=== PATIENT | female | born 1940 | race Caucasian/White ===

== ENCOUNTER 2016-06-22 19:01 | Emergency (ER) | payer OTHER ==
[~2016-06-22] VITALS: Ht 160 cm; Wt 64.0 kg
[~2016-06-22 19:01] MED LIST: ATV/1 PO; OMEP20CA9 PO; [UNRECOGNIZED DRUG - OTHER] OPL
[2016-06-22 19:04] VITALS: TEMP 36.5; Ht 160 cm; Wt 64.0 kg
[2016-06-22] MEDS ORDERED: SODIUM CHLORIDE 0.9% 1000ML 1,000 ML IV STA (20:10)
--- NOTE | 2016-06-22 20:30 | DIAGNOSTIC IMAGING REPORT ---
CHEST ONE VIEW PORTABLE CLINICAL HISTORY: Weakness COMPARISON STUDY: 03/27/2013 FINDINGS: The cardiac and mediastinal contours are normal. There is no evidence of focal pulmonary consolidation. There is no evidence of failure. No pleural effusions are visualized.[ There is minor right basilar atelectasis/scarring. IMPRESSION: No active disease in the chest. Electronically signed by: Donaldo Davis M.D. 06/22/2016 8:29 PM Dictated Date/Time: 06/22/2016 8:28 PM
[2016-06-22 20:36] VITALS: O2SAT 98
[2016-06-22 20:49] LABS: BASO % 0.3 %; BASO ABS # 0.02 K/uL (0-0.2); COMPLETE YES; EOS % 0.7 %; HEMATOCRIT 40.3 % (37-47); IG% 0.3 %; LYMPH % 34.8 %; LYMPH ABS # 2.62 K/uL (1.2-3.4); MEAN CELL VOLUME 89.4 fL (80-100); MEAN CORPUSCULAR HEMOGLOBIN 30.2 pg (25-34); MEAN CORPUSCULAR HGB CONC 33.7 g/dl (32-36); MEAN PLATELET VOLUME 9.9 fL (7.4-10.4); MONO % 9.2 %; NEUT % 54.7 %; PLATELET COUNT 256 K/uL (130-400); RED BLOOD COUNT 4.51 M/uL (4.2-5.4); WHITE BLOOD COUNT 7.53 K/uL (4.8-10.8)
[2016-06-22 21:00] LABS: PARTIAL THROMBOPLASTIN RATIO 0.9
[2016-06-22 21:12] LABS: ALT/SGPT 24 U/L (12-78); BLOOD UREA NITROGEN 16 mg/dl (7-18); BUN/CREATININE RATIO 19.9 (10-20); CALCIUM 9.7 mg/dl (8.5-10.1); CARBON DIOXIDE 31 mmol/L (21-32); CHLORIDE 100 mmol/L (98-107); CREATININE 0.79 mg/dl (0.60-1.20); GLUCOSE 96 mg/dl (70-99); MAGNESIUM 1.9 mg/dl (1.8-2.4); POTASSIUM 3.3 mmol/L (3.5-5.1); SODIUM 140 mmol/L (136-145)
[2016-06-22 21:23] LABS: ALKALINE PHOSPHATASE 66 U/L (45-117); AST/SGOT 19 U/L (15-37); CKMB/CK RATIO 2.2 (0-3.0); THYROID STIMULATING HORMONE 0.205 uIu/ml (0.300-4.500)
[2016-06-22] MEDS ORDERED: CARB1SOL OPB (21:38)
[2016-06-22] MEDS ORDERED: VALA1TAB2 PO (21:38)
[2016-06-22] MEDS ORDERED: POTASSIUM CHLORIDE 10 MEQ TABCR PO STA (22:35)
[2016-06-22 22:45] LABS: URINE APPEARANCE CLEAR (CLEAR); URINE BILIRUBIN NEG (NEG); URINE COLOR YELLOW; URINE EPITHELIAL CELL AUTO 0-5 /lpf (0-5); URINE NITRITE NEG (NEG); UROBILINOGEN NEG (NEG)
[2016-06-22 22:46] LABS: MANUAL MICROSCOPIC REQUIRED? NO; REVIEW REQ? NO
[2016-06-22] MEDS ORDERED: LSN/2025 PO (22:52)
[2016-06-22] MEDS ORDERED: CALC-452 PO (23:01)
[2016-06-22] MEDS ORDERED: MULT-190 PO (23:01)
[2016-06-22] MEDS ORDERED: HYDR2.5C37 TOP (23:08)
[2016-06-23 00:11] VITALS: BP 160/75; PULSE 71; O2SAT 100
--- NOTE | 2016-06-23 02:53 | EMERGENCY ROOM VISIT NOTE ---
History Report prepared by Angi: Bria Royal Under the Supervision of: Dr. Be Joshi M.D. First contact with patient: 20:10 Chief Complaint: CARDIAC ASSESSMENT Stated Complaint: HEART PALPS Nursing Triage Summary: "my heart has been flipping and like shutting off. Sometimes I feel short of breath when it's doing that". Seen at PCP 3 weeks ago for same issue, now worsening. Fluttering History of Present Illness The patient is a 76 year old female who presents to the Emergency Room with complaints of intermittent heart flipping beginning 4 hours ago. The patient states that the heart flipping stopped right before she got her EKG. She notes that she was seen here before for heart palpitations and racing in 2010 and was told it was anxiety but today she feels different. She reports that she sometimes gets heart flipping and the feeling of it "stopping for a second" but never for this long. The patient notes that she has been feeling this off and on for about 1 week. She complains of chest tightness like she needs to burp over the last week. Pt denies LOC, headache, fevers, chills, diaphoresis, visual changes, neck pain, chest pain, breathing difficulties, nausea, vomiting , abdominal pain, back pain, melena, hematochezia, urinary symptoms, numbness, weakness, lymphadenopathy, rash, change in appetite, or other complaints. Source of History: patient Onset: 4 hours ago Position: other (heart) Quality: other (flipping) Timing: intermittent Review of Systems See HPI for pertinent positives and negatives. A total of ten systems were reviewed and were otherwise negative. Past Medical & Surgical Medical Problems: (1) Benign hypertension (2) Bronchitis (3) Gastroesophageal reflux disease (4) Hysterectomy (5) Palpitations (6) Vertigo Family History Patient reports no known family medical history. Social History Smoking Status: Never Smoker Marital Status: Housing Status: lives with family Occupation Status: retired Current/Historical Medications Scheduled Calcium Carbonate-Cholecalcife (Calcium 600 + D 600-200 mg-Unit), 1 TAB PO BID Carboxymethylcellulose Sodium (Refresh), 1 DROP OPB PRN Hctz/Lisinopril (Lisinopril/Hctz 20/25 Mg), 1 TAB PO DAILY Hydrocortisone 2.5% (Rectal) (Anusol-Hc 2.5%), 1 APPLN TOP BID Ocuvite Preservision (Ocuvite Preservision), 1 TAB PO DAILY Valacyclovir Hcl (Valtrex), 1,000 MG PO UD Scheduled PRN Lorazepam (Ativan), 1 MG PO HS PRN for Sleep Allergies Coded Allergies: Camphor (Verified Allergy, Unknown, ., 04/22/15) Carboxymethylcellulose (Verified Allergy, Unknown, ., 04/22/15) Menthol (Verified Allergy, Unknown, ., 04/22/15) Methyl Salicylate (Verified Allergy, Unknown, ., 04/22/15) Physical Exam Vital Signs Date Time Temp Pulse Resp B/P Pulse Ox O2 Delivery O2 Flow Rate FiO2 06/23/16 00:11 71 16 160/75 100 06/22/16 22:23 71 16 160/75 100 Room Air 06/22/16 21:11 75 16 164/71 99 Room Air 06/22/16 20:37 70 16 160/73 99 Room Air 06/22/16 20:36 98 Room Air 06/22/16 20:36 Room Air 06/22/16 20:35 74 06/22/16 19:11 99 Room Air 06/22/16 19:04 36.5 83 18 178/84 99 Room Air Physical Exam GENERAL: Awake, alert, well-appearing, in no distress HENT: Normocephalic, atraumatic. Oropharynx unremarkable. EYES: Normal conjunctiva. Sclera non-icteric. NECK: Supple. No nuchal rigidity. FROM. No JVD. RESPIRATORY: Clear to auscultation. CARDIAC: Regular rate, normal rhythm. Extremities warm and well perfused. Pulses equal. ABDOMEN: Soft, non-distended. No tenderness to palpation. No rebound or guarding. No masses. RECTAL: Deferred. MUSCULOSKELETAL: Chest examination reveals no tenderness. The back is symmetrical on inspection without obvious abnormality. There is no CVA tenderness to palpation. No joint edema. LOWER EXTREMITIES: Calves are equal size bilaterally and non-tender. No edema. No discoloration. NEURO: Normal sensorium. No sensory or motor deficits noted. SKIN: No rash or jaundice noted. Medical Decision & Procedures ER Provider Diagnostic Interpretation: X ray results as stated below per my interpretation and radiologist interpretation. CHEST ONE VIEW PORTABLE FINDINGS: The cardiac and mediastinal contours are normal. There is no evidence of focal pulmonary consolidation. There is no evidence of failure. No pleural effusions are visualized.[ There is minor right basilar atelectasis/scarring. IMPRESSION: No active disease in the chest. Electronically signed by: Donaldo Davis M.D. 06/22/2016 8:29 PM Dictated Date/Time: 06/22/2016 8:28 PM Laboratory Results 06/22/16 20:39 Red Blood Count 4.51, Mean Corpuscular Volume 89.4, Mean Corpuscular Hemoglobin 30.2, Mean Corpuscular Hemoglobin Concent 33.7, Mean Platelet Volume 9.9, Neutrophils (%) (Auto) 54.7, Lymphocytes (%) (Auto) 34.8, Monocytes (%) (Auto) 9.2, Eosinophils (%) (Auto) 0.7, Basophils (%) (Auto) 0.3, Neutrophils # (Auto) 4.13, Lymphocytes # (Auto) 2.62, Monocytes # (Auto) 0.69, Eosinophils # (Auto) 0.05, Basophils # (Auto) 0.02 06/22/16 20:39 Test 06/22/16 20:35 06/22/16 20:39 06/22/16 22:30 Free Triiodothyronine 2.90 pg/ml (2.30-4.20) White Blood Count 7.53 K/uL (4.8-10.8) Red Blood Count 4.51 M/uL (4.2-5.4) Hemoglobin 13.6 g/dL (12.0-16.0) Hematocrit 40.3 % (37-47) Mean Corpuscular Volume 89.4 fL (80-100) Mean Corpuscular Hemoglobin 30.2 pg (25-34) Mean Corpuscular Hemoglobin Concent 33.7 g/dl (32-36) Platelet Count 256 K/uL (130-400) Mean Platelet Volume 9.9 fL (7.4-10.4) Neutrophils (%) (Auto) 54.7 % Lymphocytes (%) (Auto) 34.8 % Monocytes (%) (Auto) 9.2 % Eosinophils (%) (Auto) 0.7 % Basophils (%) (Auto) 0.3 % Neutrophils # (Auto) 4.13 K/uL (1.4-6.5) Lymphocytes # (Auto) 2.62 K/uL (1.2-3.4) Monocytes # (Auto) 0.69 K/uL (0.11-0.59) Eosinophils # (Auto) 0.05 K/uL (0-0.5) Basophils # (Auto) 0.02 K/uL (0-0.2) RDW Standard Deviation 41.8 fL (36.4-46.3) RDW Coefficient of Variation 13.0 % (11.5-14.5) Immature Granulocyte % (Auto) 0.3 % Immature Granulocyte # (Auto) 0.02 K/uL (0.00-0.02) Prothrombin Time 11.0 SECONDS (9.0-12.0) Prothromb Time International Ratio 1.0 (0.9-1.1) Activated Partial Thromboplast Time 24.0 SECONDS (21.0-31.0) Partial Thromboplastin Ratio 0.9 Anion Gap 9.0 mmol/L (3-11) Est Creatinine Clear Calc Drug Dose 52.8 ml/min Estimated GFR () 83.1 Estimated GFR (Non- 71.7 BUN/Creatinine Ratio 19.9 (10-20) Calcium Level 9.7 mg/dl (8.5-10.1) Magnesium Level 1.9 mg/dl (1.8-2.4) Total Bilirubin 0.4 mg/dl (0.2-1) Direct Bilirubin < 0.1 mg/dl (0-0.2) Aspartate Amino Transf (AST/SGOT) 19 U/L (15-37) Alanine Aminotransferase (ALT/SGPT) 24 U/L (12-78) Alkaline Phosphatase 66 U/L (45-117) Total Creatine Kinase 131 U/L (26-192) Creatine Kinase MB 2.9 ng/ml (0.5-3.6) Creatine Kinase MB Ratio 2.2 (0-3.0) Troponin I < 0.015 ng/ml (0-0.045) Total Protein 7.3 gm/dl (6.4-8.2) Albumin 4.0 gm/dl (3.4-5.0) Thyroid Stimulating Hormone (TSH) 0.205 uIu/ml (0.300-4.500) Free Thyroxine 1.31 ng/dl (0.80-1.60) Urine Color YELLOW Urine Appearance CLEAR (CLEAR) Urine pH 7.0 (4.5-7.5) Urine Specific [place] 1.000 (1.000-1.030) Urine Protein NEG (NEG) Urine Glucose (UA) NEG (NEG) Urine Ketones NEG (NEG) Urine Occult Blood TRACE (NEG) Urine Nitrite NEG (NEG) Urine Bilirubin NEG (NEG) Urine Urobilinogen NEG (NEG) Urine Leukocyte Esterase NEG (NEG) Urine WBC (Auto) 1-5 /hpf (0-5) Urine RBC (Auto) 0-4 /hpf (0-4) Urine Hyaline Casts (Auto) 0 /lpf (0-5) Urine Epithelial Cells (Auto) 0-5 /lpf (0-5) Urine Bacteria (Auto) NEG (NEG) Laboratory results reviewed by me Medications Administered Medications (Trade) Dose Ordered Sig/Tee Route Start Time Stop Time Status Last Admin Dose Admin Sodium Chloride (Nss 1000ml) 1,000 ml @ 125 mls/hr Q8H STAT IV 06/22/16 20:10 06/23/16 04:09 06/22/16 21:11 125 MLS/HR Potassium Chloride (Klor-Con M10) 20 meq NOW STAT PO 06/22/16 22:35 06/22/16 22:36 DC 06/22/16 23:06 20 MEQ ECG Indication: palpitations Rate (beats per minute): 80 Rhythm: normal sinus Findings: no acute ischemic change, no ectopy ED Course 2009: Sodium Chloride 1000 ml @ 125 mls/hr IV. 2021: The patient was evaluated in room C9. A complete history and physical exam was performed. 5: Klor-Con M10 20meq PO. 2259: I reevaluated the patient. She is feeling better and going to CT. 2249: I reevaluated the patient. She feels well. I updated her and we are waiting on her labs. 2307: PACs noted on monitor. 0004: Case management is going to call the patient's PCP office to get outpatient cardiac monitoring set up. 0012: I reevaluated the patient. Discussed results and discharge instructions: She verbalized understanding and agreement. The patient is ready for discharge. Medical Decision Prior records/ancillary studies reviewed. Triage Nursing notes reviewed and agree them. Additional history obtained from the family. The patient's history was concerning for palpitations. Differential diagnosis: Etiologies such as PVCs, PACs, electrolyte abnormality, cardiac dysrhythmia, thyroid dysfunction, pulmonary embolism, infection, gastrointestinal, as well as others were entertained. Physical examination: Benign as above. ER treatment provided: Cardiac monitoring. Normal saline hydration On reassessment the patient felt better. ORAL potassium Diagnostic interpretation by me: The electrocardiogram was negative for pathologic change. The labs revealed an unremarkable CBC, chemistry panel, and magnesium. Potassium was slightly low at 3.3. TSH was mildly low but T3 and T4 were normal. Cardiac markers were negative. Imaging studies: Chest x-ray as above. The patient was noted on recent to have a few premature beats. She may be having ectopy or even a possible short-lived dysrhythmia. She will need to have outpatient follow-up including a outpatient clinical research monitor. I discussed this with the patient. She and her were in agreement. She will contact her primary office tomorrow. I did have case management notified so that they can pass information on to the morning case consultant who can contact the office to assist the patient with this. If she worsens in any way she will be back for reevaluation. By the evaluation outlined above emergent etiologies such as electrolyte abnormality, cardiac dysrhythmia, thyroid dysfunction, pulmonary embolism, infection, as well as others were deemed relatively unlikely. The patient and were informed about the findings as listed above. All questions were answered and they were pleased with the treatment. Return instructions were outlined and the patient was discharged in stable condition. Outpatient prescription management: No change Referral: The patient was referred back to her primary care physician for follow-up in 2 to 3 days for a recheck of the current condition. The chart was completed utilizing [employer] Speech voice recognition software. Grammatical errors, random word insertions, pronoun errors, and incomplete sentences are an occasional consequence of this system due to software limitations, ambient noise, and hardware issues. Any formal questions or concerns about the content, text, or information contained within the body of this dictation should be directly addressed to the physician for clarification. Impression Primary Impression: Palpitations Additional Impression: Hypokalemia Scribe Attestation The scribe's documentation has been prepared under my direction and personally reviewed by me in its entirety. I confirm that the note above accurately reflects all work, treatment, procedures, and medical decision making performed by me. Departure Information Dispostion Home / Self-Care Referrals Elmer Palacio M.D. (PCP) Forms IMPORTANT VISIT INFORMATION Patient Instructions My [facility] Additional Instructions PALPITATIONS(RAPID OR SKIPPING HEARTBEAT) INSTRUCTIONS: Rest and drink plenty of fluids as tolerated. Continue current medications. Resume normal activities once your symptoms resolve. Eat a heart healthy, low fat, low cholesterol diet. Return to the ER immediately for passing out, chest pain, abdominal pain, vomiting, fevers, difficulty breathing, worsening of your condition, or as needed. Follow up with your primary physician tomorrow for a recheck of your current condition. Case management is going to call the office to notify them to help you with the appointment. An outpatient clinical research monitor is recommended. Problem Qualifiers
== END 2016-06-23 00:11 | disposition home or self-care (01) ==
LOC: C.EDB 19:02 → C.EDC 06-23 00:11
DX: R00.2 Palpitations (principal); E87.6 Hypokalemia; I10 Essential (primary) hypertension; Z90.710 Acquired absence of both cervix and uterus; Z79.899 Other long term (current) drug therapy

== ENCOUNTER 2016-10-17 12:15 | Emergency (ER) | payer OTHER ==
[~2016-10-17] VITALS: Ht 157.5 cm; Wt 63.0 kg
[~2016-10-17 12:15] MED LIST changes: +CALC-452 PO; +CARB1SOL OPB; +HYDR2.5C37 TOP; +LSN/2025 PO; +MULT-190 PO; -OMEP20CA9 PO; +VALA1TAB2 PO; -[UNRECOGNIZED DRUG - OTHER] OPL
[2016-10-17 12:25] VITALS: TEMP 36.3; Ht 157.5 cm; Wt 63.0 kg
[2016-10-17 13:30] VITALS: O2SAT 97
[2016-10-17 13:42] LABS: BASO % 0.5 %; BASO ABS # 0.05 K/uL (0-0.2); COMPLETE YES; EOS % 0.4 %; HEMATOCRIT 47.4 % (37-47); IG% 0.2 %; LYMPH % 20.8 %; LYMPH ABS # 2.09 K/uL (1.2-3.4); MEAN CORPUSCULAR HEMOGLOBIN 31.2 pg (25-34); MEAN CORPUSCULAR HGB CONC 33.1 g/dl (32-36); MEAN PLATELET VOLUME 9.9 fL (7.4-10.4); MONO % 5.2 %; NEUT % 72.9 %; PLATELET COUNT 273 K/uL (130-400); RED BLOOD COUNT 5.04 M/uL (4.2-5.4); WHITE BLOOD COUNT 10.04 K/uL (4.8-10.8)
[2016-10-17 13:53] LABS: PROTHROMBIN TIME (PATIENT) 10.7 SECONDS (9.0-12.0)
[2016-10-17 13:58] LABS: BUN/CREATININE RATIO 27.4 (10-20); CALCIUM 9.4 mg/dl (8.5-10.1); CREATININE 0.75 mg/dl (0.60-1.20); POTASSIUM 3.3 mmol/L (3.5-5.1)
[2016-10-17] MEDS ORDERED: METO25TA3 PO (14:02)
[2016-10-17] MEDS ORDERED: PRED1SUS17 OPL (14:06)
[2016-10-17] MEDS ORDERED: BRIN3SUS OPL (14:06)
[2016-10-17] MEDS ORDERED: BRIM0.2S OPL (14:06)
[2016-10-17 14:09] LABS: THYROID STIMULATING HORMONE 0.587 uIu/ml (0.300-4.500)
--- NOTE | 2016-10-17 14:47 | EMERGENCY ROOM VISIT NOTE ---
History First contact with patient: 13:08 Chief Complaint: HYPERTENSION Stated Complaint: VERY HIGH BLOOD PRESSURE History of Present Illness The patient is a 76 year old female who presents to the Emergency Room with complaints of hypertension. Patient states she was feeling anxious this morning and took her blood pressure, noting the top number to be 239, which she states is very high for her. She has long-standing history of hypertension and is on medication to treat this. She also has a history of anxiety and takes Ativan as needed for this. She did take her blood pressure medication this morning, and she states she took an 1 mg Ativan one hour prior to arrival. She currently has no complaints and states her anxiety seems to have resolved. She denies any chest pain, shortness of breath, palpitations, leg pain or swelling, headache, blurry or double vision, nausea/vomiting. Review of Systems GENERAL: Denies fevers, chills, malaise, fatigue, unintentional weight changes. HEENT: Denies dizziness, visual problems, hearing loss, tinnitus. Denies difficulty swallowing or oral lesions. PULMONARY: Denies cough, shortness of breath, sputum production or hemoptysis. CARDIOVASCULAR: Denies chest pain, palpitations, dyspnea on exertion, orthopnea or peripheral edema. GASTROINTESTINAL: Denies diarrhea, constipation, nausea, vomiting, or abdominal pain. GENITOURINARY: Denies dysuria, frequency, urgency or nocturia. NEUROLOGIC: Denies history of epilepsy, CVA, TIA or chronic headaches. MUSCULOSKELETAL: Denies history of joint tenderness/swelling. SKIN: Denies rashes or lesions. PSYCHIATRIC: Denies history of depression or mental illness. + Anxiety. ENDOCRINE: Denies history of diabetes, thyroid disorders, abnormal hair growth or sexual dysfunction. Past Medical/Surgical History Medical Problems: (1) Benign hypertension (2) Bronchitis (3) Gastroesophageal reflux disease (4) Hysterectomy (5) Palpitations (6) Vertigo Family History Patient reports no known family medical history. Social History Smoking Status: Never Smoker Marital Status: Housing Status: lives with family Occupation Status: retired Current/Historical Medications Scheduled Brimonidine Tartrate-Timolol M (Combigan), 1 DROP OPL BID Brinzolamide-Brimonidine Tartr (Simbrinza), 1 DROP OPL TID Calcium Carbonate-Cholecalcife (Calcium 600 + D 600-200 mg-Unit), 1 TAB PO BID Carboxymethylcellulose Sodium (Refresh), 1 DROP OPB PRN Hydrocortisone 2.5% (Rectal) (Anusol-Hc 2.5%), 1 APPLN TOP BID Metoprolol Succ (Toprol Xl) (Toprol-Xl), 25 MG PO DAILY Ocuvite Preservision (Ocuvite Preservision), 1 TAB PO DAILY Prednisolone Acetate (Ophth) (Prednisolone Acetate), 1 DROP OPL QID Valacyclovir Hcl (Valtrex), 1,000 MG PO TID Scheduled PRN Lorazepam (Ativan), 1 MG PO HS PRN for Sleep Allergies Coded Allergies: Camphor (Verified Allergy, Unknown, ., 10/17/16) Carboxymethylcellulose (Verified Allergy, Unknown, ., 10/17/16) Menthol (Verified Allergy, Unknown, ., 10/17/16) Methyl Salicylate (Verified Allergy, Unknown, ., 10/17/16) Physical Exam Vital Signs Date Time Temp Pulse Resp B/P (MAP) Pulse Ox O2 Delivery O2 Flow Rate FiO2 10/17/16 15:27 50 20 172/77 98 Room Air 10/17/16 14:57 53 18 189/86 99 Room Air 10/17/16 14:04 55 18 185/83 95 Room Air 10/17/16 13:32 63 10/17/16 13:30 97 Room Air 10/17/16 13:30 97 Room Air 10/17/16 12:25 36.3 57 16 208/87 99 Room Air Physical Exam CONSTITUTIONAL: No acute distress. Well appearing and well nourished. Well hydrated. Alert and oriented X 4 with normal affect. HEENT: Normocephalic, atraumatic. Pupils equal, round and reactive to light, EOMI. TMs normal. Pharynx normal. Moist mucous membranes. NECK: Supple, full active range of motion without discomfort. RESPIRATORY: Clear to auscultation bilaterally with no wheezing, crackles, rhonchi or stridor. Equal expansion bilaterally. CARDIOVASCULAR: Regular rate and rhythm with no murmurs, rubs or gallops. Normal peripheral perfusion. No edema. GASTROINTESTINAL: Soft, nontender, nondistended. Bowel sounds present in all quadrants. MUSCULOSKELETAL: Full range of motion of all joints without discomfort. INTEGUMENTARY: No rash or other significant dermatologic conditions noted. NEUROLOGIC: Cranial nerves II-XII grossly intact. No focal neurologic deficits noted. Motor intact, sensory intact, normal coordination, normal gait. Medical Decision & Procedures Laboratory Results 10/17/16 13:15 Red Blood Count 5.04, Mean Corpuscular Volume 94.0, Mean Corpuscular Hemoglobin 31.2, Mean Corpuscular Hemoglobin Concent 33.1, Mean Platelet Volume 9.9, Neutrophils (%) (Auto) 72.9, Lymphocytes (%) (Auto) 20.8, Monocytes (%) (Auto) 5.2, Eosinophils (%) (Auto) 0.4, Basophils (%) (Auto) 0.5, Neutrophils # (Auto) 7.32, Lymphocytes # (Auto) 2.09, Monocytes # (Auto) 0.52, Eosinophils # (Auto) 0.04, Basophils # (Auto) 0.05 10/17/16 13:15 Test 10/17/16 13:15 10/17/16 13:23 10/17/16 15:45 White Blood Count 10.04 K/uL (4.8-10.8) Red Blood Count 5.04 M/uL (4.2-5.4) Hemoglobin 15.7 g/dL (12.0-16.0) Hematocrit 47.4 % (37-47) Mean Corpuscular Volume 94.0 fL (80-100) Mean Corpuscular Hemoglobin 31.2 pg (25-34) Mean Corpuscular Hemoglobin Concent 33.1 g/dl (32-36) Platelet Count 273 K/uL (130-400) Mean Platelet Volume 9.9 fL (7.4-10.4) Neutrophils (%) (Auto) 72.9 % Lymphocytes (%) (Auto) 20.8 % Monocytes (%) (Auto) 5.2 % Eosinophils (%) (Auto) 0.4 % Basophils (%) (Auto) 0.5 % Neutrophils # (Auto) 7.32 K/uL (1.4-6.5) Lymphocytes # (Auto) 2.09 K/uL (1.2-3.4) Monocytes # (Auto) 0.52 K/uL (0.11-0.59) Eosinophils # (Auto) 0.04 K/uL (0-0.5) Basophils # (Auto) 0.05 K/uL (0-0.2) RDW Standard Deviation 44.5 fL (36.4-46.3) RDW Coefficient of Variation 13.0 % (11.5-14.5) Immature Granulocyte % (Auto) 0.2 % Immature Granulocyte # (Auto) 0.02 K/uL (0.00-0.02) Prothrombin Time 10.7 SECONDS (9.0-12.0) Prothromb Time International Ratio 1.0 (0.9-1.1) Activated Partial Thromboplast Time 25.4 SECONDS (21.0-31.0) Partial Thromboplastin Ratio 1.0 Anion Gap 5.0 mmol/L (3-11) Est Creatinine Clear Calc Drug Dose 53.9 ml/min Estimated GFR () 88.5 Estimated GFR (Non- 76.3 BUN/Creatinine Ratio 27.4 (10-20) Calcium Level 9.4 mg/dl (8.5-10.1) Total Bilirubin 0.6 mg/dl (0.2-1) Direct Bilirubin 0.1 mg/dl (0-0.2) Aspartate Amino Transf (AST/SGOT) 24 U/L (15-37) Alanine Aminotransferase (ALT/SGPT) 36 U/L (12-78) Alkaline Phosphatase 83 U/L (45-117) Total Protein 7.8 gm/dl (6.4-8.2) Albumin 4.3 gm/dl (3.4-5.0) Lipase 224 U/L (73-393) Thyroid Stimulating Hormone (TSH) 0.587 uIu/ml (0.300-4.500) Bedside Troponin I 0.000 ng/ml (0-0.045) Urine Color YELLOW Urine Appearance CLEAR (CLEAR) Urine pH 6.5 (4.5-7.5) Urine Specific [place] 1.012 (1.000-1.030) Urine Protein NEG (NEG) Urine Glucose (UA) NEG (NEG) Urine Ketones NEG (NEG) Urine Occult Blood 1+ (NEG) Urine Nitrite NEG (NEG) Urine Bilirubin NEG (NEG) Urine Urobilinogen NEG (NEG) Urine Leukocyte Esterase NEG (NEG) Urine WBC (Auto) 1-5 /hpf (0-5) Urine RBC (Auto) 5-10 /hpf (0-4) Urine Hyaline Casts (Auto) 0 /lpf (0-5) Urine Epithelial Cells (Auto) 0-5 /lpf (0-5) Urine Bacteria (Auto) NEG (NEG) No proteinuria Medications Administered Medications (Trade) Dose Ordered Sig/Tee Route Start Time Stop Time Status Last Admin Dose Admin Potassium Chloride (Klor-Con M10) 40 meq NOW STAT PO 10/17/16 15:07 10/17/16 15:09 DC 10/17/16 15:29 40 MEQ ECG Indication: bradycardia, other (hypertension) Findings: 1st degree AV block, left axis deviation Change: 1st degree AV block is new compared to previous EKG on 06/22/2016. Medical Decision CC: Patient presenting with complaint of hypertension. Interpretation of Labs: No leukocytosis, no anemia, mild hypokalemia, no other significant electrolyte abnormalities, normal renal function, normal liver function, no UTI, no proteinuria Differential Diagnosis: Includes, but not limited to poorly controlled hypertension, anxiety, electrolyte abnormality, PA, renal failure Medication Reconciliation: I attest that I have personally reviewed the patient' s current medication list. Vital signs review: I reviewed the patient's vital signs and interpret them as follows: T: Afebrile; BP: Hypertensive; HR: bradycardic; RR: WNL; Pulse Ox: WNL. Blood pressure screening: The patient was found to have an elevated blood pressure and was referred to their primary doctor for recheck and further treatment. Summary: Patient was evaluated at bedside, history of physical exam performed. Patient is alert and oriented, in no acute distress. She denies any complaints at this time. She is initially noted to be hypertensive with blood pressure 208/85. Orders were placed at bedside for labs, UA, EKG to evaluate for sequela of hypertension. Patient discussed with Dr. Bill, who agrees with my assessment and plan. Labs reviewed, no significant abnormalities. Mild hypokalemia noted, most likely secondary to hydrochlorothiazide. Oral replacement given today. EKG noting a new first-degree AV block, otherwise appears unchanged from previous. Patient monitored for an extended period of time. Her blood pressure is down trending and she remains without concerning symptoms. Patient reassessed multiple times throughout ED stay, she remains well- appearing with improvement in blood pressure. Patient was strongly encouraged to follow closely with her PCP regarding her blood pressure, as well as getting her potassium level rechecked. Patient was comfortable plan for discharge and follow-up, as well as return precautions, she verbalized understanding. Patient discharged home in good condition and ambulatory. Impression Primary Impression: Hypertension Additional Impression: Hypokalemia Departure Information Dispostion Home / Self-Care Condition GOOD Referrals Elmer Palacio M.D. (PCP) Patient Instructions ED HTN Established, ED Panic Attack, My [facility] Additional Instructions Follow-up with your PCP within the next week to have your blood pressure rechecked. Should also discuss having her potassium level rechecked, since this was slightly low today. Continue to take your blood pressure medication as prescribed. Please return to the ER for any worsening symptoms, including chest pain, shortness of breath, palpitations, severe dizziness or passing out, severe headache, vision changes, persistent vomiting, or any other concerns. Problem Qualifiers Primary Impression: Hypertension Hypertension type: essential hypertension Qualified Codes: I10 - Essential ( primary) hypertension
[2016-10-17] MEDS ORDERED: POTASSIUM CHLORIDE 10 MEQ TABCR PO STA (15:07)
--- NOTE | 2016-10-17 15:12 | EMERGENCY ROOM VISIT NOTE ---
ED Visit Note First contact with patient: 13:08 76 year old female with hypertension was fully evaluated by Geri Lauren NP. I also independently evaluated the patient. Blood pressure came down with new medications. I believe there is some component of anxiety causing her blood pressure to rise.
[2016-10-17 15:27] VITALS: BP 172/77; PULSE 50; O2SAT 98
[2016-10-17 16:14] LABS: URINE APPEARANCE CLEAR (CLEAR); URINE BILIRUBIN NEG (NEG); URINE COLOR YELLOW; URINE EPITHELIAL CELL AUTO 0-5 /lpf (0-5); URINE NITRITE NEG (NEG); URINE PH 6.5 (4.5-7.5); URINE SPECIFIC GRAVITY 1.012 (1.000-1.030); UROBILINOGEN NEG (NEG)
[2016-10-17 16:16] LABS: MANUAL MICROSCOPIC REQUIRED? NO; REVIEW REQ? NO
== END 2016-10-17 15:50 | disposition home or self-care (01) ==
LOC: C.EDB 12:17 → C.EDC 15:50
DX: I10 Essential (primary) hypertension (principal); I44.0 Atrioventricular block, first degree; E87.5 Hyperkalemia; Z79.899 Other long term (current) drug therapy; F41.9 Anxiety disorder, unspecified

== ENCOUNTER → 2017-04-22 | Outpatient (CLI) | payer OTHER ==
[~2017-04-22] MED LIST changes: +BRIM0.2S OPL; +BRIN3SUS OPL; -LSN/2025 PO; +METO25TA3 PO; +PRED1SUS17 OPL
--- NOTE | 2017-04-22 14:36 | MAMMOGRAPHY REPORT ---
BILATERAL DIGITAL SCREENING MAMMOGRAM WITH CAD: 04/22/2017 CLINICAL HISTORY: Routine screening. Patient has no complaints. TECHNIQUE: Current study was also evaluated with a Computer Aided Detection (CAD) system. Bilateral CC and MLO views were obtained. COMPARISON: Comparison is made to exams dated: 04/21/2016 mammogram, 04/15/2015 mammogram, 03/27/2014 mammogram, 03/23/2013 mammogram, 09/21/2012 mammogram - [facility], and 03/13/2008. BREAST COMPOSITION: There are scattered areas of fibroglandular density in both breasts. FINDINGS: No suspicious masses, calcifications, or areas of architectural distortion are noted in ei ther breast. There has been no significant interval change compared to prior exams. Scattered bilater al benign-appearing calcifications are not significantly changed. IMPRESSION: ACR BI-RADS CATEGORY 2: BENIGN There is no mammographic evidence of malignancy. A 1 year screening mammogram is recommended. The pa tient will receive written notification of the results. Approximately 10% of breast cancers are not detected with mammography. A negative mammographic report should not delay biopsy if a clinically suggestive mass is present. Bambi Schultz M.D. ah/:04/22/2017 10:09:03 Non Linear Editor: Sharonda DIAMOND(Santos)(Chary), [facility] letter sent: Normal 1/2 BI-RADS Code: ACR BI-RADS Category 2: Benign
== END | disposition home or self-care (01) ==
LOC: C.MAMM 08:55
PROVIDERS: ATTEND Family Medicine
DX: Z12.31 Encounter for screening mammogram for malignant neoplasm of breast (principal)

== ENCOUNTER → 2018-01-03 | Day surgery (SDC) | payer OTHER ==
[2017-12-28 16:39] VITALS: Ht 160 cm; Wt 71.4 kg
[~2018-01-03] VITALS: Ht 160 cm; Wt 71.4 kg
[~2018-01-03] MED LIST changes: +ACETAMINOPHEN 325 MG TAB PO PRN; +AMLO5TAB3 PO; +ATROPINE SULFATE 0.1 MG/ML 5ML SYR IV PRN; +ATROPINE SULFATE 1% OP SOLN 2 ML BTL ONE; +AcetylCHOLine CHL OP SOL 1:100 2 ML BTL ONE; +CIPR1SUS5 OPL; +EpHEDrine SULFATE INJ 50 MG/ML AMP IV PRN; +EpINEphrine INJ 1MG/ML AMP 1 MG/ML AMP ONE; +GANC0.15 OPL; -HYDR2.5C37 TOP; +LACTATED RINGER'S 1000ML 1,000 ML IV SCH; +LIDOCAINE 3.5% OPH GEL PER APPLICATION CHARGE ONE; +LIDOCAINE 3.5% OPH GEL PER APPLICATION CHARGE OPL SCH; +LIDOCAINE 4% OP SOLN DROP CHARGE ONE; +LIDOCAINE 4% OP SOLN DROP CHARGE OPL SCH; +LIDOCAINE HCL 1% MPF 2 ML VIAL ONE; +MIDAZOLAM HCL 1 MG/ML 2ML VIAL ONE; +MOXIFLOXACIN OPH SOLN PER DROP CHARGE ONE; +MOXIFLOXACIN OPH SOLN PER DROP CHARGE OPL SCH; +PARO10TA3 PO; +POVIDONE-IODINE OP SOLN 30 ML BTL ONE; +PROPARACAINE 0.5% OP SOLN PER DROP CHARGE OPL SCH; +TETRACAINE HCL (OPHTH) 60 DROPS/4 ML BTL ONE; +TOBRAMYCIN/DEXAMETHASONE OPH OINT PER APPLN CHARGE ONE
--- NOTE | 2018-01-03 12:20 | History & Physical Bridge - SC ---
H&P Re-Evaluation Bridge Note: I have examined the patient, reviewed the History & Physical and in the interval since the performance of the History & Physical I have noted the following changes of clinical significance: No changes noted
[2018-01-03] MEDS: BRIMONIDINE TART 0.2% OP SOLN PER DROP CHARGE ONE ×2 (13:49→14:05)
--- NOTE | 2018-01-03 14:06 | [facility] Post Operative Brief Note ---
Immediate Operative Summary Operative Date Jan 03, 2018. Pre-Operative Diagnosis Left Eye Secondary Corneal Edema Post-Operative Diagnosis Same as Pre op Procedure(s) Performed Left Eye Descements Stripping Automated Endothelial Keratoplasty Surgeon Dr. Levy Car Unloader Surgeon(s) None Estimated Blood Loss 0ml Findings Consistent with Post-Op Diagnosis Specimens A: Corneal Donor Rim Drains None Anesthesia Type MAC Complication(s) none Disposition Accompanied Pt To Recover: no Disposition: Recovery Room / PACU
[2018-01-03 14:07] VITALS: BP 147/61; PULSE 70; TEMP 37.4; O2SAT 98
--- NOTE | 2018-01-03 14:09 | Discharge Instructions-SurgCtr ---
Discharge Instructions Date of Service Jan 03, 2018. Visit Reason for Visit: Left Eye Secondary Corneal Edema Discharge Discharge Diagnosis / Problem: left eye secondary corneal edema Discharge Goals Goal(s): Improve function Activity Recommendations Activity Limitations: per Instructions/Follow-up section Lifting Limitations: none Anesthesia . Post Anesthesia Instructions: If you have had General Anesthesia or IV Sedation: * Do not drive today. * Resume driving when surgeon permits. * Do not make important decisions or sign legal documents today. * Call surgeon for: 1. Temperature elevations greater than 101 degrees F. 2. Uncontrollable pain. 3. Excessive bleeding. 4. Persistent nausea and vomiting. 5. Medication intolerance (nausea, vomiting or rash). * For nausea and vomiting use only clear liquids such as: tea, soda, bouillon until nausea subsides, then gradually increase diet as tolerated. * If you have any concerns or questions, call your surgeon's office. If physician is unavailable and it is an emergency, call 911 or go to the nearest emergency room. . Instructions / Follow-Up Instructions / Follow-Up ACTIVITY RECOMMENDATIONS: * Bedrest (eyes to the bea except for bathroom and meals) * Do not drop head down and look at floor MEDICATIONS: Resume previous medications unless instructed otherwise by your surgeon. Eye drops (today and tomorrow): Cipro - one drop operative eye 4 times daily Durezol - one drop operative eye 4 times daily Combigan - one drop in operative eye twice daily Zirgan - one inch to operative eye 3 times daily SPECIAL CARE INSTRUCTIONS: * If any problems or concerns, please call Dr. Levy's office at . * Keep plastic shield taped over eye to sleep at night. * Keep plastic shield taped over eye except to administer eye drops. * Keep plastic shield on until office visit the following day. FOLLOW UP VISIT: Follow-up with Dr. Levy in the [place] office as scheduled. If not already scheduled, please call the office at . Diet Recommendations Home Diet: resume previous diet Procedures Procedures Performed: Left Eye Descements Stripping Automated Endothelial Keratoplasty Pending Studies Studies pending at discharge: yes List of pending studies: donor rim culture Medical Emergencies . Who to Call and When: Medical Emergencies: If at any time you feel your situation is an emergency, please call 911 immediately. . Non-Emergent Contact Non-Emergency issues call your: Mechanical Engineering Specialist . . "Provider Documentation" section prepared by Teofilo Levy. .
--- NOTE | 2018-01-03 14:58 | Anesthesia Progress Nt - [facility] ---
Anesthesia Post Op Note Date & Time Jan 03, 2018 at 14:55 Vital Signs Pain Intensity: 0 Vital Signs Past 12 Hours Date Time Temp Pulse Resp B/P (MAP) Pulse Ox O2 Delivery O2 Flow Rate FiO2 01/03/18 14:07 37.4 70 16 147/61 (89) 98 Room Air 01/03/18 11:36 37 72 16 165/82 (109) 98 Room Air Notes Mental Status: alert / awake / arousable, participated in evaluation Nausea / Vomiting: adequately controlled Pain: adequately controlled Airway Patency, RR, SpO2: stable & adequate BP & HR: stable & adequate Hydration State: stable & adequate Anesthetic Complications: no major complications apparent
--- NOTE | 2018-01-03 15:39 | OPERATIVE REPORT ---
DATE OF OPERATION: 01/03/2018 PREOPERATIVE DIAGNOSIS: Secondary corneal edema, left eye. POSTOPERATIVE DIAGNOSIS: Secondary corneal edema, left eye. PROCEDURE PERFORMED: Descemet stripping automated endothelial keratoplasty, left eye. COMPLICATIONS: None. ESTIMATED BLOOD LOSS: None. ANESTHESIA: Local with sedation. DESCRIPTION OF PROCEDURE: After informed consent was obtained in the holding area, attention was first turned to the donor cornea. It was trephinated by me using an 8.0 mm Pretty trephine blade and then covered in Optisol and set aside. Patient was then brought back to the operating room where cardiac monitoring leads and oxygen by nasal cannula administered by anesthesia. Gentle IV sedation was given, and the patient's left eye was prepped and draped in the usual sterile fashion. Wire lid speculum was placed in the left eye, and the operating microscope swung into position. Using 0.12 forceps and a supersharp blade, a paracentesis port was made at both the 5 o'clock and 1 o'clock positions of the patient's left eye. 1% nonpreserved lidocaine was injected into the anterior chamber for anesthesia. Miochol was then injected into the anterior chamber to keep the pupil constricted. A 2.0 mm keratome blade was then used to make a shelf clear corneal incision at the 3 o'clock position of patient's left eye. The previously used Pretty trephine was then inked and used to anushka an 8 mm diameter of the center cornea of the left eye. Anterior chamber was then filled with Healon, and a reversed Sinskey hook was used to score Descemet membrane from within the marked area. Descemet stripper was then used to remove Descemet membrane from within the marked area. Stromal oil dispatcher was then used to roughen the stromal bed in the periphery of the stripped area. The main incision was then enlarged to 4 mm. An irrigation-aspiration handpiece was used to remove the viscoelastic material from the eye. The donor cornea was then placed on the EndoSerter with a drop of Healon on the endothelial side surface up and retracted into the EndoSerter. The EndoSerter was then used to inject the corneal graft into the anterior chamber through the primary incision. It was unfolded underneath BSS and air. A single 10-0 nylon suture was placed through the main incision. A complete air fill of the eye was achieved and held for 15 minutes, after which time the interface was milked using a Alessandro LASIK roller, and 3 drops of atropine placed on the eye. Another 10 minutes elapsed, after which time there was a partial air fluid exchange leaving behind a 70% air fill. During the period of air fill, the cornea was covered in Healon. ReSure sealant was then placed over the primary incision as well as the paracentesis sites. The wire lid speculum was removed from the eye. Vigamox and TobraDex ointments were placed on the eye, and the eye was shielded. Patient tolerated the procedure well and was taken to recovery area to lie flat for an hour prior to being discharged home. I attest to the content of the Intraoperative Record and any orders documented therein. Any exceptions are noted below. CHELI
== END | disposition home or self-care (01) ==
LOC: X.SURG 11:11
PROVIDERS: ATTEND Ophthalmology
DX: H18.232 Secondary corneal edema, left eye (principal); I10 Essential (primary) hypertension; Z90.710 Acquired absence of both cervix and uterus

== ENCOUNTER 2023-10-03 17:19 | Inpatient (IN) ==
--- OUTSIDE RECORDS SUMMARY | 2023-10-03 17:26 | External Medical Summary | Summary of Care ---
Author Name Unknown Organization [facility] [address] [place] [address] Phone [phone] Care Team Providers Care Legal Aid Name Role Phone Elmer Palacio MD Primary Care Provider + Encounter Details Date Type Department Care Team (Late st Contact Info) Description 09/29/2023 Orders Only Family Practice [facility] [address] [place] [address] Elmer Palacio MD [address] [place] [address] Encounter for screening mammogram for breast cancer Allergies Active Allergy Reactions Criticality Noted Date Comments Menthol 02/18/2010 documented as of this encounter (statuses as of 09/29/2023) Medications Medication Sig Dispensed Refills Start Date End Date Status OCUVITE PRESERVISION PO TABSIndications:Fredi wilburn of optic disc 1 TABLET DAILY 0 03/24/2010 Act ramesh prednisoLONE Acetate 1 % Ophthalmic Suspension (PRED FORTE) Instill 1 Drop into the left eye in the morning and 1 Drop at noon and 1 Drop in the evening and 1 Drop before bedtime. Then taper down . 0 Active Aspirin 81 MG Oral Tablet Delayed Release Take 1 Tablet by mouth in the morning. 0 Active traZODone HCl 50 MG Oral Tablet (Desyrel) 1-2 pills 1 hour before bed 180 Tablet 1 05/01/2021 Active Additional Information Patient taking differently: Taking 1/2 pill at night, Reported on 03/27/2022 Eliquis 5 MG Oral TabletIndications:H istory of embolic stroke TAKE ONE TABLET BY MOUTH EVERY MORNING AND ONE TABLET BEFORE BEDTIME 200 Tablet 3 09/24/2022 11/23/2023 Active Brimonidine Tartrate-Timolol 0.2-0.5 % Ophthalmic Solution (Combigan) INSTILL ONE DROP TWO TIMES A DAY INTO THE LEFT EYE 15 mL 3 08/13/2022 10/15/2023 Active amLODIPine Besylate 10 MG Oral Tablet (Norvasc)Indication s:HTN, goal below 140/90 Take 1 Tablet by mouth in the morning. 100 Tablet 3 01/06/2023 Active Furosemide 20 MG Oral Tablet (Lasix) Take 1 tablet by mouth 3 days per week 45 Tablet 5 03/30/2023 Active PARoxetine HCl 10 MG Oral Tablet (pAXil)Indications: HIPOLITO (generalized anxiety disorder) TAKE ONE TABLET BY MOUTH EVERY MORNING 100 Tablet 3 04/15/2023 04/14/2024 Active Atorvastatin Calcium 40 MG Oral Tablet (Lipitor)Indication s:Dyslipidemia, goal to be determined,History of embolic stroke TAKE ONE TABLET BY MOUTH EVERY DAY DIRECTED 100 Tablet 3 07/06/2023 07/05/2024 Active valACYclovir HCl 1 GM Oral Tablet (Valtrex) TAKE ONE TABLET BY MOUTH EVERY DAY 90 Tablet 3 07/07/2023 Active Zirgan 0.15 % Ophthalmic Gel (Ganciclovir) INSTILL ONE DROP into left eye ONE TIME DAILY 10 g 4 07/08/2023 Active Lisinopril 40 MG Oral TabletIndications:H TN, goal below 140/90 TAKE ONE TABLET BY MOUTH IN THE MORNING 100 Tablet 2 08/16/2023 08/15/2024 Active documented as of this encounter (statuses as of 09/29/2023) Active Problems Problem Noted Date Diagnosed Date Chronic heart failure with preserved ejection fr action 08/26/2023 Pulmonary hypertension 07/14/2023 Mitral valve insufficiency 07/14/2023 Tricuspid valve insufficiency 07/14/2023 Sinus bradycardia 01/06/2023 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 Distal right ICA. New afib Unspecified open-angle glaucoma, stage unspecifi ed 12/27/2019 Flexor tendon sheath thickening 12/27/2019 AV block, 1st degree 08/22/2018 Overview: ECG 08/22/18 RI 226 ms Herpes zoster ophthalmicus, left eye 12/14/2017 Overview: 2018 Dr Levy Corneal edema of left eye 05/25/2017 HIPOLITO (generalized anxiety disorder) 12/02/2016 Overview: 2017 start paxil Well adult exam 10/03/2015 Overview: 01/06 TTE normal EF. +MR/TR. Pulm htn. 06/06 Yousif ===. 63 years. . Cousin-Jennifer Marvin 2018 FOB WNL. Polyps in paST. HTN, goal below 140/90 09/04/2010 Dyslipidemia, goal LDL below 70 01/12/2003 Overview: Per Lipid Taxonomy. Drusen of optic disc Overview: Lora Levy Macular degeneration Overview: Dr Levy, mild, ocuvite documented as of this encounter (statuses as of 09/29/2023) Resolved Problems Problem Noted Date Diagnosed Date Resolved Date Atrial fibrillation 08/12/2020 12/20/19 22 Overview: New onset w/CVA More specified on PL Benign paroxysmal vertigo 08/17/2011 GERD (gastroesophageal reflux disease) 07/09/2011 06/20/2018 Vitamin D deficiency 09/11/2010 019 Dyslipidemia, goal to be determined 04/25/2009 12/19/2021 Overview: Per Lipid Taxonomy. With goal noted on PL ADVANCE DIRECTIVE INFORMATION 03/03/2006 06/20/2018 Overview: no Headache 12/10/2003 12/02/2016 Overview: W/weather changes, wind ICD-10 update of inactive term GENERAL OSTEOARTHROSIS (aka DJD) 12/10/2003 06/20/2018 History of colonic polyps 08/08/2001 Overview: 03/09/12: 3 mm sigmoid polyp, repeat in 5 years 09/13/06: 2 mm adenoma, sigmoid colon Dr Maharaj, repeat 2011 5 mm adenoma transverse colon, De Markles [facility] ICD-10 update of inactive term documented as of this encounter (statuses as of 09/29/2023) Immunizations Name Administration Dates Next Due COVID-19 mRNA, LNP-s, No Pre serve, 2-Dose Series (Mind-NRG) 04/02/2021,07/24/2020,06/26/2020 COVID-19, LNP-s, No Preserve , Bhupendra-sucrose, Ages 12+ (Pfizer) 01/06/2022 COVID-19, MRNA-LNP, 23-24, P F, 30 MCG/0.3 mL, 12 YRS AND ABOVE, IM (PFIZER-Comirnaty) 05/12/2023 Covid-19, Mrna, Lnp-s, Pf, B ivalent, 30 Mcg, IM, 12 yrs and above (Pfizer) 03/27/2022 Pneumococcal Conjugate Vacc, 13 Valent (Prevnar) 08/27/2014 RSV Vac., Bivalent, Perfusio n F, Pf,0.5 Ml (Abrysvo) 07/22/2023 Season Influenza, Quad, PF, Adjuvanted, 65+ Yrs, IM (FLUAD) 02/28/2020 Seasonal Influenza, PF, 6 M & above, IM , (FluLaval or Fluzone) 02/14/2018 Seasonal Influenza, Quadriva lent Hd (Fluzone Hd) 03/30/2023,03/10/2022,02/18/2021 Seasonal Influenza, Quadriva lent, No Preserve, IM 01/28/2017,02/04/2016,02/20/2015 Seasonal Influenza, Split, I IV3, With Preserve, Inj 02/05/2014,02/07/2013,01/27/2012,2010,02/19/2010,03/07/2009,02/29/2008,1 ,03/03/2006 Seasonal Influenza, Trivalen t, Adjuvanted, 65+ yrs 02/10/2019 TDAP (age 10 and older)(Boostrix) 07/10/2022,04/2012 Varicella Zoster Vaccine (Adult) 02/05/2012 Zoster Vaccine Recombinant (Shingrix) 02/23/2020 ,10/27/2019 documented as of this encounter Social History Tobacco Use Types Packs/Day Years Used Date Smoking Tobacco: Never Smokeless Tobacco: Never Alcohol Use Standard Drinks/Week Comments No 0 (1 standard drink = 0.6 oz pur e alcohol) PHQ-2 Answer Date Recorded PHQ Adult Total Score 0 08/18/2023 Hunger Vital Sign Answer Date Recorded Within the past 12 months, y ou worried that your food would run out before you got the money to buy more. Never true 07/14/19 24 Within the past 12 months, t he food you bought just didn't last and you didn't have money to get more. Never true 07/14/2023 Sex and Gender Information Value Date Recorded Sex Assigned at Female 07/10/2022 1:51 PM EST Gender Identity Female 07/10/2022 1:51 PM EST Sexual Orientation Straight 07/10/2022 1: 51 PM EST Job Start Date Occupation Industry Not on file Not on file Not on file documented as of this encounter Plan of Treatment Upcoming Encounters Date Type Department Care Team (Late st Contact Info) Description 01/28/2024 2:00 PM EDT Office Visit Cardiology, [facility] [address] [address] Vicki Johnston PA-C [address] [id number] 03/17/2024 12:20 PM EDT Office Visit Family Practice [facility] [address] [address] Elmer Palacio MD [address] [id number] 08/21/2024 1:00 PM EDT [facility] [address] [place] [phone] Joseph, Nurse Annual Wellness [facility] [address] [place] [id number] Health Maintenance Due Date Last Done Comments Depression Screening 08/17/2024 08/18/2023, 10/20/2016 (Declined) Albumin/Creatinine Ratio 01/02/2025 01/02/2022 DXA Scan 12/18/2027 12/17/2020, 02/14, 03/02/2011, Additional history exists DTaP,Tdap,and Td Vaccines (3 - Td or Tdap) 07/10/2032 07/10/2022, 01/27/2012, 01/12/2003 Colonoscopy Discontinued 03/09/2012, 02/15, 09/13/2006, Additional history exists Pneumococcal Vaccine: 65+ Years Completed 08/27/2014, 12/07/2003 Zoster Vaccines Completed 02/23/2020, 10/15, 02/05/2012 Influenza Vaccine (FLU shot) Completed 03/30/2023, 03/10/2022, 02/18/2021, Additional history exists COVID-19 Vaccine Completed 05/12/2023, 03/2022, 01/06/2022, Additional history exists GARDASIL-HPV IMMUNIZATION SERIES Aged Out No longer eligible based on patient's age to complete this topic Hepatitis B Aged Out No longer eligi ble based on patient's age to complete this topic MENINGOCOCCAL (MENACTRA/MENVEO) Aged Out No longer eligible based on patient's age to complete this topic documented as of this encounter Medical Devices Not on filedocumented as of this encounter Procedures Procedure Name Priority Date/Time Associated Diagnosis Comments MAMMOGRAM SCREENING MADYSON BILATERAL Routine 09/27/2023 Encounter for screening mammogram for breast cancer documented in this encounter Results * MAMMOGRAM SCREENING MADYSON BILATERAL (09/27/2023) Anatomical Region Laterality Modality Breast Bilateral Other 09/27/2023 Elmer Palacio MD RAD MAMMOGRAPHY documented in this encounter Visit Diagnoses Diagnosis Encounter for screening mammogram for breast cancer documented in this encounter Care Teams Legal Aid Relationship Specialty Start Date End Date Elmer Palacio MD [address] [place] [phone] PCP - General Family Medicine 02/20/15 documented as of this encounter
--- OUTSIDE RECORDS SUMMARY | 2023-10-03 17:26 | External Medical Summary | Summary of Care ---
Author Name Unknown Organization [facility] Address [address] [facility] [place] [address] Phone [phone] Care Team Providers Care Freight Representative Name Role Phone Elmer Palacio MD Primary Care Provider + Encounter Details Date Type Department Care Team (Late st Contact Info) Description 09/30/2023 Orders Only Family Practice [facility] [address] [place] [address] Elmer Palacio MD [address] [place] [address] Encounter for screening mammogram for breast cancer* Allergies Active Allergy Reactions Criticality Noted Date Comments Menthol 02/18/2010 documented as of this encounter (statuses as of 09/30/2023) Medications Medication Sig Dispensed Refills Start Date [...] as of this encounter (statuses as of 09/30/2023) Active Problems Problem Noted Date Diagnosed Date [...] History of embolic stroke 08/14/2020 Overview: 08/12/2020 [facility] to [facility] [place] [facility].. Distal right ICA. New afib Unspecified open-angle glaucoma, stage unspecifi ed 12/27/2019 Flexor tendon sheath thickening 12/27/2019 AV block, 1st degree 08/22/2018 Overview: ECG 08/22/18 [place] 226 ms Herpes zoster ophthalmicus, left eye [...] as of this encounter (statuses as of 09/30/2023) Resolved Problems Problem Noted Date Diagnosed Date [...] 5 mm adenoma transverse colon, De Markles [facility] ICD-10 update of inactive term documented as of this encounter (statuses as of 09/30/2023) Immunizations Name Administration Dates Next Due COVID-19 mRNA, LNP-s, No Pre serve, 2-Dose Series ([employer]) 04/02/2021,07/24/2020,06/26/2020 COVID-19, LNP-s, No Preserve , Bhupendra-sucrose, [...] money to buy more. Never true 07/14/19 Within the past 12 months, t he [...] on file documented as of this encounter Progress Notes * Anita Taylor RN - 09/30/2023 4:09 PM EDT Provider to address: NA Reason for Call: No chief complaint on file. Contact: Telephone Call Contact Type: Orders Provider In-Basket: Yes Outcome: Normal Mammo result letter sent by radiology. Order placed for next year Face to face time spent with Patient (minutes): 0 Total Time including non face to face (minutes): 10 documented in this encounter Plan of Treatment Upcoming Encounters Date Type Department Care Team ([facility] Contact Info) Description 01/28/2024 2:00 PM EDT Office Visit Cardiology, [facility] [address] [place] [address] Vicki Johnston PA-C [address] [place] [phone] 03/17/2024 12:20 PM EDT Office Visit Family Practice [facility] [address] [place] [address] Elmer Palacio MD [address] [place] [phone] 08/21/2024 1:00 PM EDT Nurse Only Ancillary [facility] [address] [place] [address] [facility], Nurse Annual Wellness [facility] [address] [place] [phone] Scheduled Orders Name Type Priority Associated Diagnoses Orde r Schedule MAMMOGRAM SCREENING MADYSON BILATERAL Medical Imaging Routine Encounter for screening mammogram for breast cancer Expected: 09/29/2024, Expires: 10/30/2024 Health Maintenance Due Date Last Done Comments [...] Not on filedocumented as of this encounter Visit Diagnoses Diagnosis Encounter for screening mammogram for breast cancer- Primary documented in this encounter Care Teams Freight Representative Relationship Specialty Start Date End Date Elmer Palacio MD [address] [place] [address] PCP - General Family Medicine 02/20/15 documented as of this encounter
--- OUTSIDE RECORDS SUMMARY | 2023-10-03 17:26 | External Medical Summary | Summary of Care ---
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 [facility] Referring for: Ophthalmology Conditions Ophthalmology Conditions Other Ophthalmology (comment) Reason for Visit * Reason Onset Date Comments Referral 09/29/2023 Patient needs re ferral for her eye doctor appt 10-06-2023 Encounter Details Date Type Department Care Team (Late st Contact Info) Description 09/29/2023 Telephone Family Practice [facility] [address] [place] [address] Elmer Palacio MD [address] [place] [address] Referral (Patient needs referral for her e... Allergies Active Allergy Reactions Criticality Noted Date Comments Menthol 02/18/2010 documented as of this encounter (statuses as of 10/01/2023) Medications Medication Sig Dispensed Refills Start Date [...] as of this encounter (statuses as of 10/01/2023) Active Problems Problem Noted Date Diagnosed Date [...] History of embolic stroke 08/14/2020 Overview: 08/12/2020 [facility] to [facility] via [facility].. Distal right ICA. New afib Unspecified open-angle glaucoma, stage unspecifi ed 12/27/2019 Flexor tendon sheath thickening 12/27/2019 AV block, 1st degree 08/22/2018 Overview: ECG 08/22/18 [place] 226 ms Herpes zoster ophthalmicus, left eye 12/14/2017 Overview: 2017 Dr Levy Corneal edema of left eye [...] as of this encounter (statuses as of 10/01/2023) Resolved Problems Problem Noted Date Diagnosed Date Resolved Date Atrial fibrillation 08/12/2020 12/20/19 Overview: New onset w/CVA More specified on [...] 5 mm adenoma transverse colon, [place] [facility] ICD-10 update of inactive term documented as of this encounter (statuses as of 10/01/2023) Immunizations Name Administration Dates Next Due COVID-19 mRNA, LNP-s, No Pre serve, 2-Dose Series ([employer]) 04/02/2021,07/24/2020,06/26/2020 COVID-19, LNP-s, No Preserve , Bhupendra-sucrose, [...] on file documented as of this encounter Miscellaneous Notes * Telephone Encounter - Domenica Lozano LPN - 10/01/2023 1:12 PM EDT Referral placed and faxed per request. * Telephone Encounter - Shaunna Quevedo OSA - 09/29/2023 3:58 PM EDT Has the patient been seen for this problem? (Y/N)?: yes If No, an appt needs to be scheduled before a referral will be placed (exception: proceed with referral request if referral request is for a yearly routine appointment with speciality) Patient Name: Love [place] Patient Primary care provider: Elmer Palacio MD Does this need to be an insurance referral (Y/N)?: unknown If Yes, does the insurance referral need to be placed into the [employer] system? Unsure--patient states the eye doctor office asked specifically for a referral for her appointment Name of preferred specialist: Teofilo Levy Type of specialist: eye doctor Location of specialist: [facility] Phone #: [phone] Specialist's Fax #: [phone] Reason for visit: follow up eye care-Patient goes every 4 months or so Date of visit: 10-06-2023 documented in this encounter Plan of Treatment Upcoming Encounters Date Type Department Care Team (Late st Contact Info) Description 01/28/2024 2:00 PM EDT Office Visit Cardiology, [facility] [address] [place] [address] Vicki Johnston PA-C [address] [place] [address] 03/17/2024 12:20 PM EDT Office Visit Family Practice [facility] [address] [facility] [place] [address] Elmer Palacio MD [address] [place] [address] 08/21/2024 1:00 PM EDT Nurse Only Ancillary [facility] [address] [facility] [place] [address] [facility], Nurse [facility] [address] [facility] [place] [address] Scheduled Referrals Name Type Priority Associated Diagnoses Orde r Schedule ADULT/PEDS OPHTHALMOLOGY/OPTOM ETRY REFERRAL OP Referral Within 30 days (routine) 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
--- NOTE | 2023-10-03 17:35 | Emergency Department Note ---
Impression & Plan Ankle fracture, Fall ED Provider Note Provider: Indra De MD DATE OF SERVICE: 10/03/2023 CHIEF COMPLAINT: Tripped and fell, ankle pain HISTORY OF PRESENT ILLNESS: Patient is a 83-year-old female history of CVA and stroke in the past on Eliquis presenting here after tripping and falling and the yard today. Patient states he was doing some yard work and was walking back inside. States that she evidently tripped and fell in relation to hose that was on the pavement and twisted her right ankle. Denies striking her head or any other injury. Pain and swelling to the right ankle unable to walk on it due to pain. Denies injury or pain to the right knee, hip, pelvis, arms, or again striking her head. Patient denies history of injury to this right lower extremity. Denies any syncopal type symptoms prior to this such as lightheadedness, dizziness, palpitations, or shortness of breath. Denies significant pain at this time and does arrive splinted by EMS. Was witnessed by son and states she was not on the ground for very long. Does have a little bit of swelling to her legs normally and does take a water pill. Patient able to wiggle toes and denies significant numbness to the right foot. PAST MEDICAL HISTORY: As noted above MEDICATIONS: Reviewed home medications includes Eliquis SOCIAL HISTORY: Lives at home PHYSICAL EXAM: GENERAL: alert and oriented in no acute distress on stretcher Head: normocephalic and atraumatic EYES: No injection, discharge or icterus. PERRL, EOMI. NECK: Trachea midline. Supple. ENT: Mucous membranes pink and moist. LUNGS: Airway patent. No retractions. Breath sounds clear HEART: Regular rate and rhythm. No chest wall tenderness ABDOMEN: Soft and non-tender, without guarding or rebound. SKIN: Acyanotic, warm, dry, without rashes EXTREMITIES: Without swelling, tenderness or deformity of the upper extremities 1+ edema of the left lower extremity. 2-3+ edema of the right lower extremity with some contusion around the right ankle. No significant metatarsal tenderness or deformity appreciated. No right fibular head tenderness or right knee joint line tenderness or swelling appreciated. NEUROLOGICAL: No focal deficits. No aphasia. No facial droop or slurred speech. Normal strength and tone in the extremities. Sensation to gross touch normal. Patient's imaging reviewed. Differential includes Fracture, subluxation, dislocation, contusion, ligamentous injury, neurovascular, compartment syndrome, rhabdomyolysis, as well as other pathologies. IMPRESSION/MEDICAL DECISION MAKING: Patient well-appearing. Denies falling or struck her head. Denies any LOC or presyncopal symptoms. Do not believe any blood work. No believe we need imaging and discussed with the patient she is very much in agreement. Seems like isolated injury from tripping to the right ankle region. No significant tenderness of the metatarsal or the right fibular head. Will obtain x-rays of right ankle and foot. Do not believe we need images of the right knee. No significant pain reported in the right hip region. Does not appear to have neurovascular compromise upon arrival. No open wound noted with some ecchymosis and swelling around the right ankle X-ray obtained of the right ankle and foot per radiology to confirm what appears to be a right trimalleolar ankle fracture. Again on exam and tenderness to the right knee level or further into the foot. Does not appear severely displaced at this time. Again no evidence of skin tenting or open wound. Discussed with the patient. Will splint. No evidence compartment syndrome at this time. Discussed with patient and son at bedside option of going home and safety at home. Did attempt ambulation with walker and crutches here and did not go well at all. Patient had to be assisted to the bed as she almost fell. Discussion with patient and family do not feel with her age, history of CVA, splinted leg, and anticoagulation going home at this time is safe recommended further observation here. They were in agreement. Hospitalist contacted. Basic labs ordered and discussion with them and they wish for me to talk with orthopedics to ensure the patient can be cared for here. Dr. Omar thompson agreed to see in AM. DIAGNOSIS: Fall, right ankle fracture, history of CVA DISPOSITION: Hospitalist to evaluate Patient was agreeable with this plan. PROCEDURE: splint placement Indications for procedure: Fall, right ankle pain Description of the procedure: Short leg with stirrup orthoglass splint was placed on the patient's right leg. Neurovascular status was intact after placement of the splint. PATIENT CONDITION AFTER PROCEDURE: good Past Med/Surg History Problem List (Updated 10/03/23 @ 20:04 by Jose C Dotson DO) Closed right trimalleolar fracture Fall at home Encounter for pre-operative examination Medical History Gastroesophageal reflux disease (05/27/12) Tricuspid valve insufficiency Mitral valve insufficiency Heart failure with preserved ejection fraction Chronic atrial fibrillation Cerebrovascular disease Pulmonary hypertension Benign hypertension (07/07/11) Osteoarthritis GERD (gastroesophageal reflux disease) Cornea transplant recipient LEFT Anxiety Migraine Shingles IN EYE Cardiac arrhythmia SKIPPING BEATS IN THE PAST Hyperlipidemia Hypertension Surgical History H/O: hysterectomy (07/07/11) History of colonoscopy S/P total abdominal hysterectomy and bilateral salpingo-oophorectomy History of tooth extraction History of cataract surgery LEFT Family History Sister Family history of diabetes mellitus Social History Smoking Status: Never smoker Second Hand Exposure: No; Do You Dip or Chew Tobacco: No; Hx Alcohol Use: No Hx Substance Use: No Preferred Language: Cuban Communication Ability: Effective Foiling Machine Operator Required: No Beliefs That Will Affect Care: None Current Living Situation: Spouse Feels Safe at Home: Yes Assistive Devices: Denture - Upper, Denture - Lower and Glasses Allergies Allergies Allergy/AdvReac Type Severity Reaction Status Date / Time menthol [From [facility]] Allergy Mild Rash Verified 08/12/20 16:47 methyl salicylate Allergy Mild Rash Verified 08/12/20 16:47 [From [facility]] Home Meds Home Medications Medication Instructions Recorded Confirmed brimonidine 0.2 %-timolol 0.5 % 1 drp OPL BID 08/02/18 10/03/23 eye drops (Combigan) ganciclovir 0.15 % eye gel (Zirgan) 1 drp OPL BID 08/02/18 10/03/23 lisinopril 40 mg tablet 40 mg PO QAM 08/02/18 10/03/23 paroxetine HCl 10 mg tablet 10 mg PO QAM 08/02/18 10/03/23 calcium carbonate 600 mg-vitamin 1 tab PO DAILY 08/12/20 10/03/23 D3 5 mcg (200 unit) tablet metoprolol succinate 25 mg 12.5 mg PO DAILY 08/12/20 08/12/20 tablet,extended release 24 hr vitamins A,C,N-gqah-clesad 2,148 1 tab PO DAILY 08/12/20 08/12/20 mcg-113 mg-45 mg-17.4 mg tablet amlodipine 10 mg tablet 10 mg PO DAILY 10/03/23 10/03/23 apixaban 5 mg tablet (Eliquis) 5 mg PO BID 10/03/23 10/03/23 furosemide 20 mg tablet 20 mg PO UD 10/03/23 10/03/23 valacyclovir 1 gram tablet 1,000 mg PO DAILY 10/03/23 10/03/23 Results & Data (ED) Vital Signs Vital Signs - 24 hr 10/03/23 17:27 10/03/23 17:28 10/03/23 17:28 Temperature 37 C Temperature Source Oral Oral Pulse Rate 67 69 Pulse Rate [Apical] Pulse Rate from SpO2 Sensor 59 L Respiratory Rate 15 Blood Pressure 131/86 Blood Pressure [Right Arm] Blood Pressure Mean 101 Blood Pressure Mean [Right Arm] Pulse Oximetry 94 97 Oxygen Delivery Method Room Air Sepsis Recent Fever Within 48 Hours No Sepsis New/Unexplained Change in Mental Status N/A Sepsis Action Taken by Nursing No Action Required 10/03/23 17:30 10/03/23 17:34 10/03/23 17:40 Temperature Temperature Source Pulse Rate 75 67 75 Pulse Rate [Apical] Pulse Rate from SpO2 Sensor 68 74 Respiratory Rate 23 23 Blood Pressure Blood Pressure [Right Arm] Blood Pressure Mean Blood Pressure Mean [Right Arm] Pulse Oximetry 94 92 Oxygen Delivery Method Sepsis Recent Fever Within 48 Hours Sepsis New/Unexplained Change in Mental Status Sepsis Action Taken by Nursing 10/03/23 17:50 10/03/23 18:00 10/03/23 18:10 Temperature Temperature Source Pulse Rate 67 74 77 Pulse Rate [Apical] Pulse Rate from SpO2 Sensor 67 79 71 Respiratory Rate 20 Blood Pressure Blood Pressure [Right Arm] Blood Pressure Mean Blood Pressure Mean [Right Arm] Pulse Oximetry 93 93 92 Oxygen Delivery Method Sepsis Recent Fever Within 48 Hours Sepsis New/Unexplained Change in Mental Status Sepsis Action Taken by Nursing 10/03/23 18:20 10/03/23 19:55 Temperature Temperature Source Pulse Rate 73 Pulse Rate [Apical] 84 Pulse Rate from SpO2 Sensor 82 Respiratory Rate 16 Blood Pressure Blood Pressure [Right Arm] 148/80 H Blood Pressure Mean Blood Pressure Mean [Right Arm] 102 Pulse Oximetry 93 94 Oxygen Delivery Method Room Air Sepsis Recent Fever Within 48 Hours Sepsis New/Unexplained Change in Mental Status Sepsis Action Taken by Nursing Laboratory Data 10/03/23 19:35 10/03/23 19:35 Lab Results 10/03/23 Range/Units 19:35 WBC 9.01 (4.8-10.8) K/ul RBC 4.53 (4.20-5.40) M/uL Hgb 14.4 (12.0-16.0) g/dl Hct 42.9 (37.0-47.0) % MCV 94.7 (80.0-100.0) fL MCH 31.8 (25.0-34.0) pg MCHC 33.6 (32.0-36.0) g/dL RDW Std Deviation 47.8 H (36.4-46.3) fL RDW Coeff of Nicolle 13.6 (11.5-14.5) % Plt Count 222 (130-400) K/uL MPV 11.0 (9.4-12.4) fL Immature Gran % (Auto) 0.6 % Neut % (Auto) 70.2 % Lymph % (Auto) 21.1 % Churchill % (Auto) 6.3 % Eos % (Auto) 1.2 % Baso % (Auto) 0.6 % Neut # (Auto) 6.33 (1.40-6.50) K/uL Lymph # (Auto) 1.90 (1.20-3.40) K/uL Churchill # (Auto) 0.57 (0.11-0.59) K/uL Eos # (Auto) 0.11 (0.00-0.50) K/uL Baso # (Auto) 0.05 (0.00-0.20) K/uL Immature Gran # (Auto) 0.05 (0.01-0.20) K/uL Sodium 139 (136-145) mmol/L Potassium 3.8 (3.5-5.1) mmol/L Chloride 104 (98-107) mmol/L Carbon Dioxide 26 (21-32) mmol/L Anion Gap 9 (3-11) BUN 26 H (6-23) mg/dl Creatinine 1.01 (0.6-1.2) mg/dl Est Cr Clr Drug Dosing 43.9 ml/min Est GFR ( Amer) 58.8 ml/min Est GFR (Non-Af Amer) 50.7 ml/min BUN/Creatinine Ratio 25.7 H (10-20) Glucose 117 H (70-99(Fasting)) mg/dl Calcium 9.8 (8.6-10.3) mg/dl Magnesium 2.0 (1.7-2.4) mg/dl Total Bilirubin 1.2 H (0.2-1.0) mg/dl AST 24 (13-39) U/L ALT 26 (7-52) U/L Alkaline Phosphatase 95 (34-104) U/L Total Protein 7.7 (6.0-8.3) gm/dl Albumin 4.7 (3.4-5.0) gm/dl Globulin 3.0 (2.5-4.0) gm/dl Albumin/Globulin Ratio 1.6 (0.9-2) Administered Medications Enoxaparin Sodium (Enoxaparin Inj 40 Mg/0.4 Ml Syr) 40 mg SQ Q24H JESSI Stop: 11/02/23 21:59 Last Admin: 10/03/23 22:22 Dose: 40 mg Documented By: MANDY Prednisolone Acetate (Prednisolone Acetate 1% Op Susp 5 Ml Btl) 1 drops OP BID JESSI Stop: 11/02/23 21:53 Last Admin: 10/03/23 22:23 Dose: Not Given Documented By: MANDY Trazodone HCl (Trazodone Hcl 50 Mg Tab) 50 mg PO HS JESSI Stop: 11/02/23 21:53 Last Admin: 10/03/23 22:22 Dose: 50 mg Documented By: MANDY Imaging Data Radiologist's Impression: Ankle X-Ray 10/03/23 17:31 XR foot RT min 3V routine, XR ankle RT min 3V routine HISTORY: 83 years-old Female trip fall acute pain of the right foot and ankle status post trauma COMPARISON: None TECHNIQUE: 3 views of the right foot with 3 views of the right ankle FINDINGS: FOOT: Mineralized appearance of the bones. Mild to moderate osteoarthritis. Small first metatarsal bunion. Spurring of the calcaneus. No acute fracture or dislocation. There is mild diffuse soft tissue swelling. ANKLE: Acute trimalleolar ankle fracture with only a few millimeters of displacement. Slight widening of the distal tibia fibular syndesmosis with punctate bone fragments. Moderate soft tissue swelling. IMPRESSION: 1. Acute trimalleolar ankle fracture with a few millimeters of displacement and moderate soft tissue swelling. 2. Possible syndesmotic ligamentous injury. 3. No acute fracture of the foot. ACT 112: Negative or not required by law. The above report was generated using voice recognition software. It may contain grammatical, syntax or spelling errors. Electronically signed by: Nikko Ivey M.D. 10/03/2023 5:50 PM Foot X-Ray 10/03/23 17:31 XR foot RT min 3V routine, XR ankle RT min 3V routine HISTORY: 83 years-old Female trip fall acute pain of the right foot and ankle status post trauma COMPARISON: None TECHNIQUE: 3 views of the right foot with 3 views of the right ankle FINDINGS: FOOT: Mineralized appearance of the bones. Mild to moderate osteoarthritis. Small first metatarsal bunion. Spurring of the calcaneus. No acute fracture or dislocation. There is mild diffuse soft tissue swelling. ANKLE: Acute trimalleolar ankle fracture with only a few millimeters of displacement. Slight widening of the distal tibia fibular syndesmosis with punctate bone fragments. Moderate soft tissue swelling. IMPRESSION: 1. Acute trimalleolar ankle fracture with a few millimeters of displacement and moderate soft tissue swelling. 2. Possible syndesmotic ligamentous injury. 3. No acute fracture of the foot. ACT 112: Negative or not required by law. The above report was generated using voice recognition software. It may contain grammatical, syntax or spelling errors. Electronically signed by: Nikko Ivey M.D. 10/03/2023 5:50 PM Discharge Plan Visit Data Chief Complaint: Fall ED Provider: Indra De Discharge Problem: Ankle fracture, Fall Patient Disposition: Admitted As Inpatient Condition: Fair Discharge Instructions Interventions: ED Discharge Assessment Last Done: 10/03/23 21:24
--- NOTE | 2023-10-03 17:53 | XRay Report ---
XR foot RT min 3V routine, XR ankle RT min 3V routine HISTORY: 83 years-old Female trip fall acute pain of the right foot and ankle status post trauma COMPARISON: None TECHNIQUE: 3 views of the right foot with 3 views of the right ankle FINDINGS: FOOT: Mineralized appearance of the bones. Mild to moderate osteoarthritis. Small first metatarsal bunion. Spurring of the calcaneus. No acute fracture or dislocation. There is mild diffuse soft tissue swelli ng. ANKLE: Acute trimalleolar ankle fracture with only a few millimeters of displacement. Slight widening of the distal tibia fibular syndesmosis with punctate bone fragments. Moderate soft tissue swelling. IMPRESSION: 1. Acute trimalleolar ankle fracture with a few millimeters of displacement and moderate soft tissue swelling. 2. Possible syndesmotic ligamentous injury. 3. No acute fracture of the foot. ACT 112: Negative or not required by law. The above report was generated using voice recognition software. It may contain grammatical, syntax o r spelling errors. Electronically signed by: Nikko Ivey M.D. 10/03/2023 5:50 PM
--- NOTE | 2023-10-03 19:32 | History & Physical Report ---
Date of Service October 03, 2023 Assessment & Plan (1) Ankle fracture: (2) Closed right trimalleolar fracture: (3) Fall at home: (4) Chronic atrial fibrillation: (5) Pulmonary hypertension: Plan Patient 83-year-old female suffering a trimalleolar right ankle fracture after a fall at home. History of chronic atrial fibrillation on chronic anticoagulation. Now unable to safely ambulate to return home. Admit to the hospital Maintain splint on the right lower extremity, nonweightbearing right lower extremity Consult orthopedics Hold [facility] for possible surgical intervention Physical therapy and Occupational Therapy Care management, anticipate patient may need rehab placement Home medications as prescribed Scheduled Tylenol for pain control, as needed oxy IR History of Present Illness Chief Complaint: Tripped and fell while gardening, severe right foot and ankle pain Primary Care Provider: Elmer Palacio MD Patient 83-year-old female with chronic atrial fibrillation on chronic anticoagulation was out gardening and tripped over a garden hose. She fell the ground and it was witnessed by her son. She did not lose consciousness and did not have a syncopal event. She immediately had pain in her right ankle and presented to the emergency room for evaluation in the emergency room imaging revealed trimalleolar fracture. It was splinted and initial plan was for her to be discharged home with outpatient orthopedic follow-up, however even with a walker she could not ambulate safely. She was therefore referred to our service for ongoing care here in the hospital to establish a safe disposition. Time my evaluation, patient's pain is fairly well-controlled. Allergies Allergy/AdvReac Type Severity Reaction Status Date / Time menthol [From [facility]] Allergy Mild Rash Verified 08/12/20 16:47 methyl salicylate Allergy Mild Rash Verified 08/12/20 16:47 [From [facility]] Home Medications Medication Instructions Recorded Confirmed Type amlodipine 5 mg tablet 5 mg PO QAM 08/02/18 08/12/20 History brimonidine 0.2 %-timolol 0.5 % 1 drp OPL BID 08/02/18 08/12/20 History eye drops (Combigan) ganciclovir 0.15 % eye gel (Zirgan) 1 drp OPL BID 08/02/18 08/12/20 History lisinopril 40 mg tablet 40 mg PO QAM 08/02/18 08/12/20 History paroxetine HCl 10 mg tablet 10 mg PO QAM 08/02/18 08/12/20 History calcium carbonate 600 mg-vitamin 1 tab PO DAILY 08/12/20 08/12/20 History D3 5 mcg (200 unit) tablet dextromethorphan-guaifenesin 30 1 tab PO Q12H PRN Cough 08/12/20 08/12/20 History mg-600 mg tablet extended [id number] hr (Mucinex DM) metoprolol succinate 25 mg 12.5 mg PO DAILY 08/12/20 08/12/20 History tablet,extended release 24 hr trazodone 50 mg tablet 50 - 100 mg PO HS 08/12/20 08/12/20 History vitamins A,C,R-wjxd-xlajcj 2,148 1 tab PO DAILY 08/12/20 08/12/20 History mcg-113 mg-45 mg-17.4 mg tablet Past Med/Surg History Problem List (Updated 10/03/23 @ 20:04 by Jose C Dotson DO) Closed right trimalleolar fracture Fall at home Encounter for pre-operative examination Medical History Gastroesophageal reflux disease (05/27/12) Tricuspid valve insufficiency Mitral valve insufficiency Heart failure with preserved ejection fraction Chronic atrial fibrillation Cerebrovascular disease Pulmonary hypertension Benign hypertension (07/07/11) Osteoarthritis GERD (gastroesophageal reflux disease) Cornea transplant recipient LEFT Anxiety Migraine Shingles IN EYE Cardiac arrhythmia SKIPPING BEATS IN THE PAST Hyperlipidemia Hypertension Surgical History H/O: hysterectomy (07/07/11) History of colonoscopy S/P total abdominal hysterectomy and bilateral salpingo-oophorectomy History of tooth extraction History of cataract surgery LEFT Family History Sister Family history of diabetes mellitus Social History Smoking Status: Never smoker Second Hand Exposure: No; Do You Dip or Chew Tobacco: No; Hx Alcohol Use: No Hx Substance Use: No Preferred Language: Burmese Communication Ability: Effective Test Worker Required: No Beliefs That Will Affect Care: None Current Living Situation: Spouse Feels Safe at Home: Yes Assistive Devices: Denture - Upper, Denture - Lower and Glasses Review of Systems Review of Systems: Pertinent positive and negative review of systems as mentioned in the HPI Physical Exam Physical Exam: Constitutional: Alert, ill in appearance, nontoxic HEENT: Mucous membranes moist. Sclera clear Neck: Soft, no adenopathy Lungs: Clear to auscultation, decreased, no wheezes rales or rhonchi CV: S1-S2, regular Abdomen: Soft, nontender, nondistended Extremities: No significant edema Musculoskeletal: Right lower extremity in posterior splint and Fernando wrap Neuro: No focal deficits, sensation intact Psych: Cooperative, normal mood Results & Data Results & Data Vital Signs (Past 12 Hours) Vital Signs Temp Pulse Resp BP Pulse Ox O2 Del Method 10/03/23 18:20 73 93 10/03/23 18:10 77 92 10/03/23 18:00 74 93 10/03/23 17:50 67 20 93 10/03/23 17:40 75 23 92 10/03/23 17:34 67 10/03/23 17:30 75 23 94 10/03/23 17:28 37 C 69 15 131/86 97 Room Air 10/03/23 17:27 67 94 Diagnostic Findings Reviewed imaging, laboratory and diagnostic studies. Pertinent findings as below. CBC stable BMP pending Reviewed EKG personally, sinus rhythm with frequent PVCs (1) Ankle fracture Encounter type: initial encounter Fracture type: closed Laterality: right Qualified Code(s): S82.891A - Other fracture of right lower leg, initial encounter for closed fracture
[2023-10-03 19:50] LABS: Basophils # (auto) 0.05 K/uL (0.00-0.20); Basophils % (auto) 0.6 %; Eosinophils # (auto) 0.11 K/uL (0.00-0.50); Eosinophils % (auto) 1.2 %; Hematocrit (blood only) 42.9 % (37.0-47.0); Hemoglobin 14.4 g/dl (12.0-16.0); Immature Granulocytes # (auto) 0.05 K/uL (0.01-0.20); Immature Granulocytes % (auto) 0.6 %; Lymphocytes % (auto) 21.1 %; Mean Corpuscular Hemoglobin 31.8 pg (25.0-34.0); Mean Corpuscular Hgb Conc 33.6 g/dL (32.0-36.0); Mean Corpuscular Volume 94.7 fL (80.0-100.0); Monocytes # (auto) 0.57 K/uL (0.11-0.59); Monocytes % (auto) 6.3 %; Neutrophils # (auto) 6.33 K/uL (1.40-6.50); Neutrophils % (auto) 70.2 %; Platelet Count 222 K/uL (130-400); RDW Coefficient of Variation 13.6 % (11.5-14.5); RDW Standard Deviation 47.8 fL (36.4-46.3); Red Blood Count 4.53 M/uL (4.20-5.40); White Blood Count 9.01 K/ul (4.8-10.8)
[2023-10-03 20:05] LABS: Albumin Globulin Ratio 1.6 (0.9-2); Albumin Level 4.7 gm/dl (3.4-5.0); BUN Creatinine Ratio 25.7 (10-20); Bilirubin,Total 1.2 mg/dl (0.2-1.0); Calcium 9.8 mg/dl (8.6-10.3); Creatinine Clr Calc Pharmacy 43.9 ml/min; Est GFR (African American) 58.8 ml/min; Est GFR (Non-African American) 50.7 ml/min; Potassium 3.8 mmol/L (3.5-5.1); Total Protein 7.7 gm/dl (6.0-8.3)
[2023-10-03] MEDS ORDERED: ONDANSETRON INJ 2 MG/ML 2 ML VIAL IV PRN (21:54)
[2023-10-03] MEDS ORDERED: ALUMINUM/MAGNESIUM SUSP 30 ML UDC PO PRN (21:54)
[2023-10-03] MEDS ORDERED: MAGNESIUM HYDROXIDE SUSP 30 ML UDC PO PRN (21:54)
[2023-10-03] MEDS: traZODone HCL 50 MG TAB PO SCH (22:22)
[2023-10-03] MEDS: ENOXAPARIN INJ 40 MG/0.4 ML SYR SQ SCH (22:22)
[2023-10-03] MEDS: prednisoLONE acetate 1% OP SUSP 5 ML BTL OP SCH (22:23)
[2023-10-03] MEDS: oxyCODONE HCL IR 5 MG TAB (IMMEDIATE RELEASE) PO PRN (23:31)
[2023-10-03] MEDS: GANCICLOVIR 0.15% OPL SCH (23:32)
[2023-10-03] MEDS: BRIMONIDINE TARTRATE/TIMOLOL OPL SCH (23:32)
[2023-10-04] MEDS ORDERED: ORDER AWAITING ACTION [Brimonidine-Timolol [Combigan] 0.2-0.5 % Drops] SCH
[2023-10-04] MEDS: ACETAMINOPHEN 325 MG TAB PO SCH (00:11)
--- NOTE | 2023-10-04 07:01 | Orthopedic Consultation ---
Date of Service October 04, 2023 Assessment & Plan (1) Closed right trimalleolar fracture: 83-year-old female with a right femoral ankle fracture. This is something that would benefit from a surgical management. Plan: She has been admitted by the medicine service. I will make sure she is medically optimized but looks to be so. Will plan open reduction internal fixation of his ankle fracture. This will either be today or tomorrow depending on availability status. The risks Mente this procedure explained. She understands would like to proceed. In the meantime we will keep her foot elevated. Nonweightbearing. History of Present Illness Reason for Consultation: . Right ankle injury Requesting Physician: . Attending Physician: Vaibhav Montelongo MD . 83-year-old female who sustained an injury yesterday. She had a mechanical fall. She had acute onset of pain and discomfort in her right ankle. She was seen in the emergency room where x-rays rule ankle fracture. She was splinted and they attempted to try and get him home but unsuccessful. Could not ambulate or get around safely. She been admitted. Denies any real other aches or pains. No other injuries. Allergies Allergy/AdvReac Type Severity Reaction Status Date / Time menthol [From [facility]] Allergy Mild Rash Verified 08/12/20 16:47 methyl salicylate Allergy Mild Rash Verified 08/12/20 16:47 [From [facility]] Home Medications Medication Instructions Recorded Confirmed Type brimonidine 0.2 %-timolol 0.5 % 1 drp OPL BID 08/02/18 10/03/23 History eye drops (Combigan) ganciclovir 0.15 % eye gel (Zirgan) 1 drp OPL BID 08/02/18 10/03/23 History lisinopril 40 mg tablet 40 mg PO QAM 08/02/18 10/03/23 History paroxetine HCl 10 mg tablet 10 mg PO QAM 08/02/18 10/03/23 History calcium carbonate 600 mg-vitamin 1 tab PO DAILY 08/12/20 10/03/23 History D3 5 mcg (200 unit) tablet metoprolol succinate 25 mg 12.5 mg PO DAILY 08/12/20 08/12/20 History tablet,extended release 24 hr vitamins A,C,C-muke-jajmuf 2,148 1 tab PO DAILY 08/12/20 08/12/20 History mcg-113 mg-45 mg-17.4 mg tablet amlodipine 10 mg tablet 10 mg PO DAILY 10/03/23 10/03/23 History apixaban 5 mg tablet (Eliquis) 5 mg PO BID 10/03/23 10/03/23 History furosemide 20 mg tablet 20 mg PO UD 10/03/23 10/03/23 History valacyclovir 1 gram tablet 1,000 mg PO DAILY 10/03/23 10/03/23 History Past Med/Surg History Problem List Closed right trimalleolar fracture Fall at home Encounter for pre-operative examination Medical History Gastroesophageal reflux disease (05/27/12) Tricuspid valve insufficiency Mitral valve insufficiency Heart failure with preserved ejection fraction Chronic atrial fibrillation Cerebrovascular disease Pulmonary hypertension Benign hypertension (07/07/11) Osteoarthritis GERD (gastroesophageal reflux disease) Cornea transplant recipient LEFT Anxiety Migraine Shingles IN EYE Cardiac arrhythmia SKIPPING BEATS IN THE PAST Hyperlipidemia Hypertension Surgical History H/O: hysterectomy (07/07/11) History of colonoscopy S/P total abdominal hysterectomy and bilateral salpingo-oophorectomy History of tooth extraction History of cataract surgery LEFT Family History Sister Family history of diabetes mellitus Social History Smoking Status: Never smoker Second Hand Exposure: No; Do You Dip or Chew Tobacco: No; Hx Alcohol Use: No Hx Substance Use: No Preferred Language: Icelandic Communication Ability: Effective Counseling Services Manager Required: No Beliefs That Will Affect Care: None Current Living Situation: Alone Feels Safe at Home: Yes Safety Concerns: Feels Safe At This Time Assistive Devices: Denture - Upper, Denture - Lower and Glasses Review of Systems All systems reviewed & are unremarkable except as noted in HPI & below. Physical Exam . Physical examination is a pleasant only female. She is lying in bed looks comfortable this morning. She is in no acute distress. Examination of the right ankle reveals the splint to be in place. Her foot is plantarflexed. She can flex extend her toes appropriately. She is neurologically intact. Results & Data Results & Data Laboratory Results . Diagnostic Findings . X-rays of the ankle were reviewed. Shows a minimally to mildly displaced a trimalar ankle fracture. Comminution of the fibula. PG Care Time/CCT Total # of Minutes Spent Total Time Spent with Patient: Total time spent is greater than 50% in coordination of care (as documented) at patient's floor/unit and/or counseling patient: Coding Level of Care Code 48387 IN/OBS CONSULT LVL 5,80M Diagnoses Closed right trimalleolar fracture S82.851A
--- NOTE | 2023-10-04 07:26 | XRay Report ---
XR chest 1V portable CLINICAL HISTORY: pre-op COMPARISON STUDY: Chest radiograph August 12, 2020. FINDINGS: Lung volumes are normal. Minimal right basilar opacity favors atelectasis. There is no pneu mothorax or pleural effusion. Moderate cardiomegaly. Mediastinal contours are normal. There is no dashawn dence for pulmonary edema. IMPRESSION: No acute cardiopulmonary findings. Cardiomegaly. ACT 112: Negative or not required by law. Electronically signed by: Adonis Bond M.D. 10/04/2023 7:24 AM
[2023-10-04] MEDS: ASPIRIN 81 MG ECTAB PO SCH (07:32)
[2023-10-04] MEDS: amLODIPine BESYLATE 5 MG TAB PO SCH (08:31)
[2023-10-04] MEDS: FUROSEMIDE 20 MG TAB PO SCH (08:31)
[2023-10-04] MEDS: PARoxetine HCL 10 MG TAB PO SCH (08:31)
[2023-10-04] MEDS: lisinopril 40 MG TAB PO SCH (08:31)
[2023-10-04 08:38] LABS: Hematocrit (blood only) 37.1 % (37.0-47.0); Hemoglobin 12.6 g/dl (12.0-16.0); Mean Corpuscular Hemoglobin 32.1 pg (25.0-34.0); Mean Corpuscular Volume 94.6 fL (80.0-100.0); Mean Platelet Volume 10.9 fL (9.4-12.4); Platelet Count 196 K/uL (130-400); RDW Coefficient of Variation 13.7 % (11.5-14.5); RDW Standard Deviation 47.4 fL (36.4-46.3); Red Blood Count 3.92 M/uL (4.20-5.40); White Blood Count 7.83 K/ul (4.8-10.8)
[2023-10-04 09:03] LABS: BUN Creatinine Ratio 23.4 (10-20); Calcium 9.4 mg/dl (8.6-10.3); Creatinine Clr Calc Pharmacy 54.7 ml/min; Est GFR (African American) 81.6 ml/min; Est GFR (Non-African American) 70.4 ml/min; Potassium 3.3 mmol/L (3.5-5.1)
--- NOTE | 2023-10-04 09:11 | Electrocardiogram Report ---
Test Reason : Blood Pressure : / mmHG Vent. Rate : 071 BPM Atrial Rate : 100 BPM P-R Int : 168 ms QRS Dur : 086 ms QT Int : 398 ms P-R-T Axes : 000 -33 -77 degrees QTc Int : 432 ms Sinus rhythm with Premature ventricular complexes or Fusion complexes Left axis deviation Nonspecific ST and T wave abnormality Abnormal ECG When compared with ECG of 12-AUG-2020 17:15, Sinus rhythm has replaced Atrial fibrillation frequent PVCs vs aberrancy now present Confirmed by Redd Rick ([id number]) on 10/04/2023 9:11:31 AM Referred By: REFERRED SELF Confirmed By:Redd Rick
[2023-10-04] MEDS: POTASSIUM CHLORIDE CRTAB 20 MEQ TABCR PO ONE (12:50)
--- NOTE | 2023-10-04 15:05 | Hospitalist Progress Note ---
Date of Service October 04, 2023 Assessment & Plan (1) Ankle fracture: (2) Closed right trimalleolar fracture: (3) Fall at home: (4) Chronic atrial fibrillation: (5) Pulmonary hypertension: Plan Patient 83-year-old female suffering a trimalleolar right ankle fracture after a fall at home. History of chronic atrial fibrillation on chronic anticoagulation. Now unable to safely ambulate to return home. Closed right trimalleolar fracture Secondary to mechanical fall S/P Splint --Foot X ray:Acute trimalleolar ankle fracture with a few millimeters of displacement and moderate soft tissue swelling. Possible syndesmotic ligamentous injury. No acute fracture of the foot. Pain control Fall precautions Plan for right ankle open reduction internal fixation tomorrow N.p.o. to midnight Appreciate orthopedic input Hold Krissy for now given plan for surgery Hypokalemia Replete electrolytes as needed Monitor Other chronic conditions: Chronic atrial fibrillation Hypertension Mood disorder Continue home medications as able DVT Px: Lovenox SQ for now CODE STATUS Full code Disposition PT OT prior to discharge Admission and Anticipated Discharge Date Admission Date: October 03, 2023 Subjective Patient is seen and examined at bedside Right ankle pain is controlled Denies any chest pain, dyspnea, nausea, vomiting, abdominal pain No other complaints Review of Systems Review of Systems: All systems reviewed & are unremarkable except as noted in Subjective Physical Exam Physical Exam: Physical Exam: Vitals signs as noted above General Appearance:Moderately built and nourished, no apparent distress, Elderly Head: normocephalic, Atraumatic Eyes: normal inspection, EOMI Neck: supple, Trachea midline Respiratory/Chest: Normal breath sounds, CTA, No accessory muscle use Cardiovascular: S1, S2, No murmur Abdomen/GI:Soft, Non tender, Bowel sounds present Extremities/Musculoskeletal:normal inspection, + Pedal edema, R ankle Splint Neurologic/Psych:AAOX3, grossly no focal neurological deficits Skin: normal color, warm Results & Data Results & Data Vital Signs (Past 12 Hours) Vital Signs Temp Pulse Resp BP Pulse Ox O2 Del Method 10/04/23 13:49 37.6 C H 67 19 112/67 92 Room Air 10/04/23 07:27 36.8 C 56 L 17 113/70 96 Room Air Laboratory Results Short CBC 10/03/23 10/04/23 Range/Units 19:35 07:57 WBC 9.01 7.83 (4.8-10.8) K/ul Hgb 14.4 12.6 (12.0-16.0) g/dl Hct 42.9 37.1 (37.0-47.0) % Plt Count 222 196 (130-400) K/uL BMP 10/03/23 10/04/23 19:35 07:57 Sodium 139 141 Potassium 3.8 3.3 L Chloride 104 107 Carbon Dioxide 26 27 BUN 26 H 18 Creatinine 1.01 0.77 Glucose 117 H 101 H Calcium 9.8 9.4 Liver Function 10/03/23 Range/Units 19:35 Total Bilirubin 1.2 H (0.2-1.0) mg/dl AST 24 (13-39) U/L ALT 26 (7-52) U/L Alkaline Phosphatase 95 (34-104) U/L Albumin 4.7 (3.4-5.0) gm/dl (1) Ankle fracture Encounter type: initial encounter Fracture type: closed Laterality: right Qualified Code(s): S82.891A - Other fracture of right lower leg, initial encounter for closed fracture
[2023-10-05 06:45] LABS: Hematocrit (blood only) 34.9 % (37.0-47.0); Hemoglobin 11.6 g/dl (12.0-16.0); Mean Corpuscular Hemoglobin 31.4 pg (25.0-34.0); Mean Corpuscular Hgb Conc 33.2 g/dL (32.0-36.0); Mean Corpuscular Volume 94.6 fL (80.0-100.0); Platelet Count 177 K/uL (130-400); RDW Standard Deviation 48.8 fL (36.4-46.3); Red Blood Count 3.69 M/uL (4.20-5.40); White Blood Count 8.31 K/ul (4.8-10.8)
[2023-10-05] MEDS ORDERED: ROPIVACAINE 0.5% 5 MG/ML 30 ML VIAL ONE (07:03)
[2023-10-05 07:07] LABS: BUN Creatinine Ratio 20.3 (10-20); Creatinine Clr Calc Pharmacy 56.9 ml/min; Est GFR (African American) 85.6 ml/min; Est GFR (Non-African American) 73.9 ml/min; Magnesium 1.9 mg/dl (1.7-2.4); Potassium 3.6 mmol/L (3.5-5.1)
--- NOTE | 2023-10-05 10:32 | Orthopedic Progress Note ---
Date of Service October 05, 2023 Assessment & Plan (1) Closed right trimalleolar fracture: NPO. Surgery planned today for ORIF of the right ankle with Dr. Nelson. She would prefer to be discharged home instead of rehab. Will see how she is doing post op with PT. Procedure explained including risks, benefits, and alternatives to surgery. Consent obtained. Subjective .83 year old with right ankle fracture. Pain controlled. No new complaints. NPO Review of Systems All systems reviewed & are unremarkable except as noted in HPI & below. Physical Exam . alert and oriented. NAD right leg is splinted. NVI Results & Data Results & Data Laboratory Results . Diagnostic Findings . PG Care Time/CCT Total # of Minutes Spent Total Time Spent with Patient: Total time spent is greater than 50% in coordination of care (as documented) at patient's floor/unit and/or counseling patient: Coding Level of Care Code 17553 SUB INP/OBS CARE 2/35MIN Diagnoses Closed right trimalleolar fracture S82.851A
--- NOTE | 2023-10-05 10:36 | History & Physical Bridge Note ---
Date of Service October 05, 2023 History & Physical Bridge Note I have examined the patient, reviewed the History & Physical and in the interval since the performance of the History & Physical I have noted the following changes of clinical significance: no changes noted
[2023-10-05] MEDS ORDERED: fentaNYL citrate PF 100 MCG/2 ML VIAL ONE (11:14)
[2023-10-05] MEDS ORDERED: DEXAMETHASONE SOD INJ 4 MG/ML VIAL ONE (11:14)
[2023-10-05] MEDS ORDERED: LIDOCAINE 2% 2 ML VIAL/AMP(20MG/ML) INFIL ONE ×2 (11:14→11:17)
[2023-10-05] MEDS ORDERED: ONDANSETRON INJ 2 MG/ML 2 ML VIAL ONE (11:14)
[2023-10-05] MEDS ORDERED: PROPOFOL IV EMULSION 10 MG/ML 20 ML VIAL IV ONE (11:14)
[2023-10-05] MEDS: LACTATED RINGER'S 1,000 ML IV SCH (12:47)
[2023-10-05] MEDS ORDERED: SODIUM CHLORIDE 0.9% PF INJ 10 ML VIAL ONE (13:28)
--- NOTE | 2023-10-05 14:02 | Hospitalist Progress Note ---
Date of Service October 05, 2023 Assessment & Plan (1) Closed right trimalleolar fracture: (2) Fall at home: (3) Chronic atrial fibrillation: (4) Pulmonary hypertension: Plan Patient 83-year-old female suffering a trimalleolar right ankle fracture after a fall at home. History of chronic atrial fibrillation on chronic anticoagulation. Now unable to safely ambulate to return home. Closed right trimalleolar fracture Secondary to mechanical fall S/P Splint --Foot X ray:Acute trimalleolar ankle fracture with a few millimeters of displacement and moderate soft tissue swelling. Possible syndesmotic ligamentous injury. No acute fracture of the foot. Pain control Fall precautions Plan for right ankle open reduction internal fixation today N.p.o. to midnight Appreciate orthopedic input Hold Eliquis for now given plan for surgery daily stool softener added Hypokalemia Replete electrolytes as needed Will give 40meq KCL today and 1g mag sulfate due to hx of afib to keep K and Mag > 4.0 and 2.0 HTN will hold lasix in the perioperative phase and resume as able continue other home meds Other chronic conditions: Chronic atrial fibrillation Hypertension Mood disorder Continue home medications as able DVT Px: Eliquis on hold, will await clearance from orthopedics when to resume CODE STATUS Full code Disposition PT OT prior to discharge A total of 42 minutes was spent coordinating, documenting, and providing care for this patient excluding time spent in the performance of separately billed services. This included personally viewing all current laboratories and imaging studies, medication reconciliation, outpatient chart review, and discussion with specialists. Admission and Anticipated Discharge Date Admission Date: October 03, 2023 Supervising Physician Co-Signing Physician Notes Patient is not personally evaluated by me on 10/05/2023. Patient is currently being managed by [facility] by Katelyn Fagan PA-C Subjective Pt was seen and examined in room 357-2. Follow up ankle fx. She is lying in bed and denies pain. Plan is to go to OR today. She is wondering, "where do we go from here." She denies f/c/s, chest pain, sob, n/v/d, abd pain. Review of Systems Review of Systems: All systems reviewed & are unremarkable except as noted in HPI & below Physical Exam Physical Exam: Gen: WD/WN, NAD, A&O x3 HEENT: Normocephalic, atraumatic, conjunctivae moist, sclerae anicteric, mucous membranes moist. Lung: Clear to Auscultation bilaterally, no wheezes/rales/rhonchi Heart: Regular rate, regular rhythm, no murmurs, rubs, or gallops Abdomen: Soft, NT, ND +BS x 4 Extremities: RLE Cast in place, NVI distally Skin: Warm, no rash, negative turgor. Results & Data Results & Data Vital Signs (Past 12 Hours) Vital Signs Temp Pulse Resp BP Pulse Ox O2 Del Method 10/05/23 12:32 37.4 C 62 16 142/59 H 93 Room Air 10/05/23 07:11 37.1 C 65 18 112/59 L 91 Room Air Laboratory Results Short CBC 10/05/23 Range/Units 06:17 WBC 8.31 (4.8-10.8) K/ul Hgb 11.6 L (12.0-16.0) g/dl Hct 34.9 L (37.0-47.0) % Plt Count 177 (130-400) K/uL BMP 10/05/23 06:17 Sodium 140 Potassium 3.6 Chloride 108 H Carbon Dioxide 26 BUN 15 Creatinine 0.74 Glucose 97 Calcium 9.0 Medications Administered Current Inpatient Medications Acetaminophen (Acetaminophen 325 Mg Tab) 650 mg PO Q6 JESSI Stop: 11/03/23 00:00 Last Admin: 10/05/23 11:46 Dose: 650 mg Al Hydrox/Mg Hydrox/Simethicone (Aluminum/Magnesium Susp 30 Ml Udc) 30 ml PO Q6H PRN PRN Reason: Dyspepsia Stop: 11/02/23 21:53 Amlodipine Besylate (Amlodipine Besylate 5 Mg Tab) 10 mg PO QAM JESSI Stop: 11/03/23 08:59 Last Admin: 10/05/23 08:51 Dose: 10 mg Aspirin (Aspirin 81 Mg Ectab) 81 mg PO DAILY JESSI Stop: 11/03/23 08:59 Last Admin: 10/05/23 07:20 Dose: Not Given Brimonidine/Timolol (Brimonidine Tartrate/Timolol) 1 drops OPL BID JESSI Stop: 11/02/23 22:59 Last Admin: 10/05/23 08:50 Dose: 1 drops Furosemide (Furosemide 20 Mg Tab) 20 mg PO QAM [facility] Stop: 11/03/23 08:59 Last Admin: 10/05/23 08:52 Dose: 20 mg Lactated Ringer's (Lr) 1,000 mls @ 15 mls/hr IV .Q24H [facility] Stop: 11/04/23 11:44 Last Admin: 10/05/23 12:47 Dose: 15 mls/hr Lisinopril (Lisinopril 40 Mg Tab) 40 mg PO QAM [facility] Stop: 11/03/23 08:59 Last Admin: 10/05/23 08:51 Dose: 40 mg Magnesium Hydroxide (Magnesium Hydroxide Susp 30 Ml Udc) 30 ml PO Q6H PRN PRN Reason: Constipation Stop: 11/02/23 21:53 Ganciclovir [Zirgan] 0.15 % Gel *Patient 's Own Med* 1 each OPL BID [facility] Stop: 11/02/23 22:59 Last Admin: 10/05/23 08:51 Dose: Not Given Ondansetron HCl (Ondansetron Inj 2 Mg/Ml 2 Ml Vial) 4 mg IV Q6H PRN PRN Reason: Nausea Stop: 11/02/23 21:53 Oxycodone HCl (Oxycodone Hcl Ir 5 Mg Tab (Immediate Release)) 5 mg PO Q4 PRN PRN Reason: Pain Stop: 10/17/23 21:53 Last Admin: 10/03/23 23:31 Dose: 5 mg Paroxetine HCl (Paroxetine Hcl 10 Mg Tab) 10 mg PO QAM [facility] Stop: 11/03/23 08:59 Last Admin: 10/05/23 08:51 Dose: 10 mg Prednisolone Acetate (Prednisolone Acetate 1% Op Susp 5 Ml Btl) 1 drops OP BID [facility] Stop: 11/02/23 21:53 Last Admin: 10/05/23 08:50 Dose: 1 drops Trazodone HCl (Trazodone Hcl 50 Mg Tab) 50 mg PO HS [facility] Stop: 11/02/23 21:53 Last Admin: 10/04/23 19:57 Dose: 50 mg
[2023-10-05] MEDS ORDERED: ePHEDrine sulfate 50 MG/ML AMP IV PRN (14:07)
[2023-10-05] MEDS ORDERED: fentaNYL citrate PF 100 MCG/2 ML VIAL IV PRN (14:07)
[2023-10-05] MEDS ORDERED: ATROPINE SULFATE 0.1 MG/ML 10ML SYR IV PRN (14:07)
[2023-10-05] MEDS ORDERED: ONDANSETRON INJ 2 MG/ML 2 ML VIAL IV PRN ×2 (14:07→17:15)
[2023-10-05] MEDS ORDERED: POTASSIUM CHLORIDE CRTAB 20 MEQ TABCR PO STA (14:08)
--- NOTE | 2023-10-05 14:08 | Anesthesiology Consultation ---
Date of Service October 05, 2023 Assessment & Plan (1) Encounter for pre-operative examination: Chart Review Chart Review: Acceptable Risk for Surgery and Patient NOT seen in Pre Admission Testing Consults Requested none History Surgery Operation Date: 10/05/23 13:50 Proposed Procedures p Right Ankle Fracture Open Reduction Internal Fixation - Regan Nelson MD Height/Weight Height: 5 ft 3 in Weight: 83.659 kg Allergies Allergy/AdvReac Type Severity Reaction Status Date / Time menthol [From [facility]] Allergy Mild Rash Verified 08/12/20 16:47 methyl salicylate Allergy Mild Rash Verified 08/12/20 16:47 [From [facility]] Medications Home Medications Medication Instructions Recorded Confirmed Last Taken brimonidine 0.2 %-timolol 0.5 % 1 drp OPL BID 08/02/18 10/03/23 09/11/18 08:00 eye drops (Combigan) ganciclovir 0.15 % eye gel (Zirgan) 1 drp OPL BID 08/02/18 10/03/23 09/11/18 08:00 lisinopril 40 mg tablet 40 mg PO QAM 08/02/18 10/03/23 09/12/18 07:00 paroxetine HCl 10 mg tablet 10 mg PO QAM 08/02/18 10/03/23 09/11/18 08:00 calcium carbonate 600 mg-vitamin 1 tab PO DAILY 08/12/20 10/03/23 Unknown D3 5 mcg (200 unit) tablet metoprolol succinate 25 mg 12.5 mg PO DAILY 08/12/20 08/12/20 Unknown tablet,extended release 24 hr vitamins A,C,T-[id number]-jxlkzw 2,148 1 tab PO DAILY 08/12/20 08/12/20 Unknown mcg-113 mg-45 mg-17.4 mg tablet amlodipine 10 mg tablet 10 mg PO DAILY 10/03/23 10/03/23 Unknown apixaban 5 mg tablet (Eliquis) 5 mg PO BID 10/03/23 10/03/23 Unknown furosemide 20 mg tablet 20 mg PO UD 10/03/23 10/03/23 Unknown valacyclovir 1 gram tablet 1,000 mg PO DAILY 10/03/23 10/03/23 Unknown Active Medications Generic Name Dose Route Start Last Admin Trade Name Freq PRN Reason Stop Dose Admin Acetaminophen 650 mg 10/04/23 00:00 10/05/23 11:46 Acetaminophen 325 Mg Tab PO 11/03/23 00:00 650 mg Q6 JESSI Administration Amlodipine Besylate 10 mg 10/04/23 09:00 10/05/23 08:51 Amlodipine Besylate 5 Mg Tab PO 11/03/23 08:59 10 mg QAM JESSI Administration Aspirin 81 mg 10/04/23 09:00 10/05/23 07:20 Aspirin 81 Mg Ectab PO 11/03/23 08:59 Not Given DAILY JESSI Brimonidine/Timolol 1 drops 10/03/23 23:00 10/05/23 08:50 Brimonidine Tartrate/Timolol OPL 11/02/23 22:59 1 drops BID JESSI Administration Furosemide 20 mg 10/04/23 09:00 10/05/23 08:52 Furosemide 20 Mg Tab PO 11/03/23 08:59 20 mg QAM JESSI Administration Lactated Ringer's 1,000 mls @ 15 mls/hr 10/05/23 11:45 10/05/23 12:47 Lr IV 11/04/23 11:44 15 mls/hr .Q24H JESSI Administration Lisinopril 40 mg 10/04/23 09:00 10/05/23 08:51 Lisinopril 40 Mg Tab PO 11/03/23 08:59 40 mg QAM JESSI Administration Ganciclovir [Zirgan] 1 each 10/03/23 23:00 10/05/23 08:51 0.15 % Gel *Patient OPL 11/02/23 22:59 Not Given 's Own Med* BID JESSI Oxycodone HCl 5 mg 10/03/23 21:54 10/03/23 23:31 Oxycodone Hcl Ir 5 Mg Tab (Immediate Release) PO 10/17/23 21:53 5 mg Q4 PRN Administration Pain Paroxetine HCl 10 mg 10/04/23 09:00 10/05/23 08:51 Paroxetine Hcl 10 Mg Tab PO 11/03/23 08:59 10 mg QAM JESSI Administration Prednisolone Acetate 1 drops 10/03/23 21:54 10/05/23 08:50 Prednisolone Acetate 1% Op Susp 5 Ml Btl OP 11/02/23 21:53 1 drops BID JESSI Administration Trazodone HCl 50 mg 10/03/23 21:54 10/04/23 19:57 Trazodone Hcl 50 Mg Tab PO 11/02/23 21:53 50 mg HS JESSI Administration NPO Date Last Intake of Fluids: 10/05/23 Time Last Intake of Fluids: 08:51 Date Last Intake of Solids: 10/04/23 Time Last Intake of Solids: 18:00 Past Medical History Medical History Gastroesophageal reflux disease (05/27/12) Tricuspid valve insufficiency Mitral valve insufficiency Heart failure with preserved ejection fraction Chronic atrial fibrillation Cerebrovascular disease Pulmonary hypertension Benign hypertension (07/07/11) Osteoarthritis GERD (gastroesophageal reflux disease) Cornea transplant recipient LEFT Anxiety Migraine Shingles IN EYE Cardiac arrhythmia SKIPPING BEATS IN THE PAST Hyperlipidemia Hypertension Past Family History Family History Sister Family history of diabetes mellitus Past Surgical History Surgical History H/O: hysterectomy (07/07/11) History of colonoscopy S/P total abdominal hysterectomy and bilateral salpingo-oophorectomy History of tooth extraction History of cataract surgery LEFT Social History Smoking Status: Never smoker Do You Dip or Chew Tobacco: No Hx Alcohol Use: No Hx Substance Use: No substance use type: does not use Physical Exam Vital Signs Last Vital Signs Temp 37.4 C 10/05/23 12:32 Pulse 62 10/05/23 12:32 Resp 16 10/05/23 12:32 BP 142/59 H 10/05/23 12:32 Pulse Ox 93 10/05/23 12:32 O2 Del Method Room Air 10/05/23 12:32 Testing Laboratory Results 10/05/23 06:17 10/05/23 06:17 Blood Type B Negative 10/04/23 20:19 Antibody Screen NEGATIVE 10/04/23 20:19 Electrocardiogram Date: 10/03/23 DICTATED BY: Redd Rick MD Test Reason : Blood Pressure : / mmHG Vent. Rate : 071 BPM Atrial Rate : 100 BPM P-R Int : 168 ms QRS Dur : 086 ms QT Int : 398 ms P-R-T Axes : 000 -33 -77 degrees QTc Int : 432 ms Sinus rhythm with Premature ventricular complexes or Fusion complexes Left axis deviation Nonspecific ST and T wave abnormality Abnormal ECG When compared with ECG of 12-AUG-2020 17:15, Sinus rhythm has replaced Atrial fibrillation frequent PVCs vs aberrancy now present Chest X-Ray XR chest 1V portable CLINICAL HISTORY: pre-op COMPARISON STUDY: Chest radiograph August 12, 2020. FINDINGS: Lung volumes are normal. Minimal right basilar opacity favors atelectasis. There is no pneumothorax or pleural effusion. Moderate cardiomegaly. Mediastinal contours are normal. There is no evidence for pulmonary edema. IMPRESSION: No acute cardiopulmonary findings. Cardiomegaly.
[2023-10-05] MEDS: ceFAZolin 2000MG 2,000 MG/15 ML SYR IV ONE (14:43)
[2023-10-05] MEDS ORDERED: ePHEDrine sulfate 50 MG/ML AMP ONE (15:14)
[2023-10-05] MEDS ORDERED: KETOROLAC 30 MG/ML VIAL ONE (16:10)
[2023-10-05] MEDS: BUPIVACAINE/EPINEPHRINE 0.5% MPF 1:200,000 30 ML VIAL ONE (16:15)
[2023-10-05] MEDS: BACITRACIN OINT 14 GM TUBE ONE (16:34)
--- NOTE | 2023-10-05 16:50 | Operative Report ---
PG Post Operative Report Pre & Post Diagnosis Operation Date: 10/05/23 13:50 Pre-Op Diagnosis: Closed right trimalleolar fracture Post-Op Diagnosis: Closed right trimalleolar fracture I identified the patient and participated in the time-out.: Yes Procedure Operation Date: 10/05/23 13:50 Actual Procedures p Right Ankle Fracture Open Reduction Internal Fixation(Right) - Regan Nelson MD Surgeon Regan Nelson MD B Operator Lemuel Crane PA-C Estimated Blood Loss 30 Findings Consistent with Post-Op Diagnosis Specimens None Anesthesia Type General Complications none Disposition Accompanied Patient To Recovery: No Indications Patient is an 83-year-old female who sustained a fall several days ago. She did cut acute onset of pain and cannot ambulate. She brought to emergency room x- rays or a right trimalar ankle fracture. She was splinted and could not make it home and is not able to mobilize adequately. She is admitted to the hospital. She is medically optimized. Patient elected to proceed with surgical treatment. Description of Procedure Medial side implants consist of: 1. 4.0 partially-threaded cancellous screws x 2 with washers. Lateral side implants consist of: 1. Synthes right distal fibular locking plate. 2. 3.5 fully threaded cortical screws. 3. 4.0 fully threaded cancellous screw x 1. 4. 2.7 fully threaded cortical locking screws. The patient was taken to the operating, identified, placed on the operating table in supine position but all contractors were appropriately padded. IV antibiotics provided by anesthesia team. General anesthetic was implemented. A right thigh tourniquet was then placed. The right lower EXTR splint was removed. I then scrubbed the foot with Hibiclens, prepped with ChloraPrep and draped the ankle and foot in a sterile fashion. The right leg was elevated exsanguinated with use of an Esmarch and the tourniquet was placed at 300 mmHg. A medial approach to the ankle was then performed to a curvilinear incision centered over the fracture. Sharp dissection was carried through subcutaneous tissue directly down the fracture. The fracture was opened up and cleaned. It was reduced and held reduced with a reduction clamp. I placed 2 wires across the fracture site and then placed two 4.0 cannulated screws with washers across the fracture under fluoroscopic guidance. Despite excellent compression. Attention drawn laterally. A direct lateral approach to the fibula was then performed to longitudinal incision of the posterior lateral border the fibula. Sharp dissection was carried through subcutaneous tissues directly down to the fracture. The fracture was exposed. A severely comminuted and diffusely osteopenic. I held the fracture out to length and clamped it with several clamps. I placed several K wires. I then contoured a Synthes right distal fibular locking plate the lateral aspect the fibula. Was fixed proximally with cortical screws and then distally with a 2.[address] I did place a single cancellous screw in the central aspect. X-rays brought in. The fracture was anatomically reduced. I stressed the mortise there was no gapping. We irrigated the wound extensivel y. I injected locally with 30 cc of half percent Marcaine with epinephrine. The periosteum laterally over the plate was closed with 0 Vicryl suture in a [id number] fashion. The tourniquet was let down for tourniquet time 63 minutes. Hemostasis assured use electrocautery. The wounds once again irrigated. The tourniquet was let down for tourniquet time 63 minutes. I then closed the subcutaneous tissues with 2-0 Dexon suture in a buried interrupted fashion skin was closed with 3-0 nylon suture in simple fashion. Leg was then cleaned and dried and sterile dressing was Xeroform, 4 fours, sterile ABD pad, sterile cast padding, well-padded posterior and stirrup splint was applied. The patient was then brought out of general esthesia and transferred to the recovery in stable condition. Patient tolerated procedure well and there are no complications. Lemuel Crane, physician assistant store manager sales, was present for the entire procedure. Assistance assistance was required for proper patient positioning, prepping and draping, surgical exposure, retraction, perform the technical details of the operation, placement of the hardware, closure of the incision site and placement of the sterile postoperative bandage and splint. I attest to the content of the Intraoperative Record and any orders documented therein. Any exceptions are noted below.
--- NOTE | 2023-10-05 17:08 | Anesthesiology Progress Note ---
Date of Service October 05, 2023 Anesthesia Post Procedure Vital Signs Vital Signs: Temp Pulse Pulse Resp BP Pulse Ox O2 Del Method 10/05/23 17:00 64 18 120/57 L 94 Nasal Cannula 10/05/23 16:50 60 18 110/56 L 94 Oxymask 10/05/23 16:40 36.1 C L 63 16 104/59 L 92 Oxymask 10/05/23 12:32 37.4 C 62 16 142/59 H 93 Room Air 10/05/23 07:11 37.1 C 65 18 112/59 L 91 Room Air 10/04/23 20:29 37.1 C 64 17 121/70 95 Room Air O2 Flow Rate 10/05/23 17:00 3 10/05/23 16:50 3 10/05/23 16:40 4 10/05/23 12:32 10/05/23 07:11 10/04/23 20:29 Pain Intensity Right Ankle: Pain Intensity: 0 Transfer of Care Handoff Completed per policy Notes Mental Status: alert / awake / arousable Patient Amnestic to Procedure: Yes Nausea / Vomiting: adequately controlled Pain: adequately controlled Airway Patency, RR, SpO2: stable & adequate BP & HR: stable & adequate Hydration State: stable & adequate Anesthetic Complications: no major complications apparent and Pt Satisfied with anesthetic care
[2023-10-05] MEDS ORDERED: FUROSEMIDE 20 MG TAB PO SCH (17:15)
[2023-10-05] MEDS ORDERED: METOCLOPRAMIDE HCL INJ 5 MG/ML 2 ML VIAL IV PRN (17:15)
[2023-10-05] MEDS ORDERED: bisacodyL 10 MG SUPP PR PRN (17:15)
[2023-10-05] MEDS ORDERED: NALOXONE HCL 0.4 MG/1 ML VIAL/CARP IV PRN (17:15)
[2023-10-05] MEDS ORDERED: HYDROmorphone INJ 0.5 MG/0.5 ML SYR IV PRN (17:15)
[2023-10-05] MEDS ORDERED: traMADol HCL 50 MG TABLET PO PRN (17:15)
[2023-10-05] MEDS ORDERED: MAGNESIUM HYDROXIDE SUSP 30 ML UDC PO PRN (17:15)
[2023-10-05] MEDS ORDERED: ALUMINUM/MAGNESIUM SUSP 30 ML UDC PO PRN (17:15)
[2023-10-05] MEDS: ceFAZolin 2,000 MG/15 ML IV PUSH IV ONE (17:16)
[2023-10-05] MEDS: SODIUM CHLORIDE 0.9% 1,000 ML IV SCH (17:40)
[2023-10-05] MEDS: MAGNESIUM SULFATE / D5W 1 GM/100 ML BAG IV ONE (17:40)
[2023-10-05] MEDS: POTASSIUM CHLORIDE CRTAB 20 MEQ TABCR PO SCH (17:59)
[2023-10-05] MEDS: ASCORBIC ACID 500 MG TAB PO SCH (18:54)
[2023-10-05] MEDS: DOCUSATE SODIUM 100 MG CAP PO SCH (19:54)
[2023-10-05] MEDS: SENNA 8.6 MG TAB PO SCH (19:55)
[2023-10-05] MEDS: ASPIRIN 81 MG ECTAB PO SCH (19:55)
[2023-10-05] MEDS ORDERED: DOCUSATE SODIUM 100 MG CAP PO SCH (21:00)
[2023-10-05] MEDS: ACETAMINOPHEN 500 MG TAB PO SCH (21:14)
[2023-10-05] MEDS: ceFAZolin 2000MG 2,000 MG/15 ML SYR IV SCH (21:14)
--- NOTE | 2023-10-05 21:30 | Fluoroscopy Report ---
FL ankle RT 2V CLINICAL HISTORY: RIGHT ORIF ANKLE COMPARISON STUDY: Right ankle 10/03/2023. FLUOROSCOPY TIME: 16 seconds FLUOROSCOPY IMAGES: 6 Ka,r: 0.3 mGy FINDINGS: Status post internal fixation of a trimalleolar right ankle fracture with a cortical plate and screws. The hardware appears intact. Alignment appears near-anatomic. IMPRESSION: Fluoroscopic assistance as above. ACT 112: Negative or not required by law. Electronically signed by: Shilo Grimm M.D. 10/05/2023 9:29 PM
[2023-10-06 07:46] LABS: Basophils # (auto) 0.03 K/uL (0.00-0.20); Basophils % (auto) 0.2 %; Hematocrit (blood only) 41.7 % (37.0-47.0); Hemoglobin 13.8 g/dl (12.0-16.0); Immature Granulocytes % (auto) 0.8 %; Lymphocytes # (auto) 0.97 K/uL (1.20-3.40); Lymphocytes % (auto) 7.8 %; Mean Corpuscular Hemoglobin 32.1 pg (25.0-34.0); Mean Corpuscular Hgb Conc 33.1 g/dL (32.0-36.0); Mean Platelet Volume 10.9 fL (9.4-12.4); Monocytes # (auto) 0.52 K/uL (0.11-0.59); Monocytes % (auto) 4.2 %; Neutrophils # (auto) 10.78 K/uL (1.40-6.50); Platelet Count 221 K/uL (130-400); RDW Coefficient of Variation 13.7 % (11.5-14.5); RDW Standard Deviation 48.7 fL (36.4-46.3)
[2023-10-06 08:01] LABS: Albumin Globulin Ratio 1.3 (0.9-2); Albumin Level 4.2 gm/dl (3.4-5.0); BUN Creatinine Ratio 18.8 (10-20); Bilirubin,Total 0.9 mg/dl (0.2-1.0); Calcium 9.5 mg/dl (8.6-10.3); Creatinine Clr Calc Pharmacy 43.9 ml/min; Est GFR (African American) 62.5 ml/min; Est GFR (Non-African American) 53.9 ml/min; Globulin 3.2 gm/dl (2.5-4.0); Magnesium 2.4 mg/dl (1.7-2.4); Potassium 4.3 mmol/L (3.5-5.1); Total Protein 7.4 gm/dl (6.0-8.3)
[2023-10-06] MEDS: amLODIPine BESYLATE 5 MG TAB PO SCH (08:02)
[2023-10-06] MEDS: MULTIVITAMIN TAB PO SCH (08:03)
--- NOTE | 2023-10-06 13:07 | Surgery Progress Note ---
Date of Service October 06, 2023 Assessment & Plan (1) Closed right trimalleolar fracture: Plan: 83-year-old female postop day 1 from ORIF of the right trimalleolar ankle fracture. Patient is doing well. Relatively pain-free. Plan: At this point we will start physical therapy for mobilization. She needs to be nonweightbearing on this right ankle for the first 2 weeks until I see her back in clinic. She needs to elevate is much as possible. Needs to keep pr essure off her heel to prevent heel sores and ulcers. Splint needs to stay clean dry and in place. I will see her back 2 to 3 weeks out from surgery date. She is orthopedically okay for discharge anytime medically stable. Would recommend DVT prophylaxis including teds, SCDs, aspirin twice a day for 6 weeks. Any orthopedic questions can be directed me at [phone]. Admission and Anticipated Discharge Date Admission Date: October 03, 2023 Subjective 83-year-old female postop day 1 from a ORIF of a right trimalar ankle fracture. She is doing well this morning. Denies any real significant pain. No other complaints. Physical Exam Physical Exam: Physical examination of the right ankle reveals the splint to be in place. It is clean dry and intact. No sign of bloody drainage. She can flex extend her toes appropriately. Toes are pink with brisk refill. She is neurologically intact. Results & Data Vital Signs (Past 12 Hours) Vital Signs Temp Pulse Pulse Resp BP Pulse Ox O2 Del Method 10/06/23 12:00 36.3 C L 58 L 18 106/61 95 Room Air 10/06/23 08:00 36.2 C L 69 17 114/54 L 95 Room Air 10/06/23 07:19 36.2 C L 69 17 114/54 L 95 Room Air 10/06/23 04:14 36.3 C L 77 16 112/68 94 Room Air PG Care Time/CCT Total # of Minutes Spent Total Time Spent with Patient: Total time spent is greater than 50% in coordination of care (as documented) at patient's floor/unit and/or counseling patient: Coding Level of Care Code 58445 Post Operative Follow-Up Diagnoses Closed right trimalleolar fracture S82.851A
--- NOTE | 2023-10-06 14:16 | Hospitalist Progress Note ---
Date of Service October 06, 2023 Assessment & Plan (1) Closed right trimalleolar fracture: (2) Fall at home: (3) Chronic atrial fibrillation: (4) Pulmonary hypertension: Plan Patient 83-year-old female suffering a trimalleolar right ankle fracture after a fall at home. History of chronic atrial fibrillation on chronic anticoagulation. Now unable to safely ambulate to return home. Closed right trimalleolar fracture Secondary to mechanical fall S/P Splint --Foot X ray:Acute trimalleolar ankle fracture with a few millimeters of displacement and moderate soft tissue swelling. Possible syndesmotic ligamentous injury. No acute fracture of the foot. Pain control Fall precautions S/P ORIF R ankle by Dr. Nelson POD #1 continue PT/OT NWB to R ankle for 3 weeks. She will need follow up with Dr. Nelson in 2-3 weeks from surgery date she needs to keep pressure off her heel and splint needs to stay clean and dry Discussed with DR. Nelson okay to resume eliquis Appreciate orthopedic input daily stool softener added, she is moving bowels Hypokalemia repleted due to hx of afib keep K and Mag > 4.0 and 2.0 HTN Bp on lower side hold amlodipine, lisinopril, lasix and resume as able Other chronic conditions: Chronic atrial fibrillation Hypertension Mood disorder Continue home medications as able DVT Px: Resume eliquis CODE STATUS Full code Disposition Pt is medically stable for discharge, Plan is for rehab, discussed with CM and sent for auth A total of 44 minutes was spent coordinating, documenting, and providing care for this patient excluding time spent in the performance of separately billed services. This included personally viewing all current laboratories and imaging studies, medication reconciliation, outpatient chart review, and discussion with specialists. Admission and Anticipated Discharge Date Admission Date: October 03, 2023 Supervising Physician Co-Signing Physician Notes I have seen and discussed the case with the collaborating advanced practitioner. I agree with the above progress note. I have reviewed and confirmed the patients medical history, the findings on physical examination, and the patients diagnosis and treatment plan with Garcia GARCIA and agree with the information documented. I have reviewed the advanced practitioner's documentation, and I agree with, and take responsibility for the plan of care Subjective She was seen and examined in 357-2. F/U R ankle trimalleolar fx s/p ORIF. She feels well and denies any pain. She has worked with PT and states she is going to need to go to rehab. She denies f/c/s, chest pain, sob, n/v/d, abd pain. +flatus, +BM Review of Systems Review of Systems: All systems reviewed & are unremarkable except as noted in HPI & below Physical Exam Physical Exam: Gen: WD/WN, NAD, A&O x3 HEENT: Normocephalic, atraumatic, conjunctivae moist, sclerae anicteric, mucous membranes moist. Lung: Clear to Auscultation bilaterally, no wheezes/rales/rhonchi Heart: IRR/IRR no murmurs, rubs, or gallops Abdomen: Soft, NT, ND +BS x 4 Extremities: RLE splint in place, NVI distally Skin: Warm, no rash, negative turgor. Results & Data Results & Data Vital Signs (Past 12 Hours) Vital Signs Temp Pulse Pulse Resp BP Pulse Ox O2 Del Method 10/06/23 12:00 36.3 C L 58 L 18 106/61 95 Room Air 10/06/23 08:00 36.2 C L 69 17 114/54 L 95 Room Air 10/06/23 07:19 36.2 C L 69 17 114/54 L 95 Room Air 10/06/23 04:14 36.3 C L 77 16 112/68 94 Room Air Laboratory Results Short CBC 10/06/23 Range/Units 06:52 WBC 12.40 H (4.8-10.8) K/ul Hgb 13.8 (12.0-16.0) g/dl Hct 41.7 (37.0-47.0) % Plt Count 221 (130-400) K/uL BMP 10/06/23 06:52 Sodium 140 Potassium 4.3 Chloride 105 Carbon Dioxide 26 BUN 18 Creatinine 0.96 Glucose 145 H Calcium 9.5 Liver Function 10/06/23 Range/Units 06:52 Total Bilirubin 0.9 (0.2-1.0) mg/dl AST 21 (13-39) U/L ALT 16 (7-52) U/L Alkaline Phosphatase 83 (34-104) U/L Albumin 4.2 (3.4-5.0) gm/dl Medications Administered Current Inpatient Medications Acetaminophen (Acetaminophen 500 Mg Tab) 1,000 mg PO Q8 PENDING SALE TO [facility] Stop: 11/04/23 21:59 Last Admin: 10/06/23 13:50 Dose: 1,000 mg Al Hydrox/Mg Hydrox/Simethicone (Aluminum/Magnesium Susp 30 Ml Udc) 15 ml PO Q4H PRN PRN Reason: Heartburn Stop: 11/04/23 17:14 Amlodipine Besylate (Amlodipine Besylate 5 Mg Tab) 10 mg PO DAILY [facility] Stop: 11/05/23 08:59 Last Admin: 10/06/23 08:02 Dose: 10 mg Apixaban (Apixaban 5 Mg Tablet) 5 mg PO BID [facility] Stop: 11/05/23 20:59 Ascorbic Acid (Ascorbic Acid 500 Mg Tab) 500 mg PO BIDM [facility]END[facility] Stop: 11/04/23 17:14 Last Admin: 10/06/23 08:04 Dose: 500 mg Aspirin (Aspirin 81 Mg Ectab) 81 mg PO BID [facility] Stop: 11/04/23 20:59 Last Admin: 10/06/23 07:59 Dose: 81 mg Bisacodyl (Bisacodyl 10 Mg Supp) 10 mg MA DAILY PRN PRN Reason: Constipation Stop: 11/04/23 17:14 Brimonidine/Timolol (Brimonidine Tartrate/Timolol) 1 drops OPL BID [facility] Stop: 11/02/23 22:59 Last Admin: 10/06/23 08:04 Dose: 1 drops Docusate Sodium (Docusate Sodium 100 Mg Cap) 100 mg PO BID [facility] Stop: 11/04/23 20:59 Last Admin: 10/06/23 07:59 Dose: 100 mg Furosemide (Furosemide 20 Mg Tab) 20 mg PO QAM [facility] Stop: 11/03/23 08:59 Last Admin: 10/05/23 08:52 Dose: 20 mg Hydromorphone HCl (Hydromorphone Inj 0.5 Mg/0.5 Ml Syr) 0.5 mg IV Q4H PRN PRN Reason: Pain or Pre PT Stop: 10/19/23 17:14 Lisinopril (Lisinopril 40 Mg Tab) 40 mg PO QAM [facility] Stop: 11/03/23 08:59 Last Admin: 10/06/23 08:03 Dose: 40 mg Magnesium Hydroxide (Magnesium Hydroxide Susp 30 Ml Udc) 30 ml PO Q6H PRN PRN Reason: Constipation Stop: 11/04/23 17:14 Metoclopramide HCl (Metoclopramide Hcl Inj 5 Mg/Ml 2 Ml Vial) 10 mg IV Q6H PRN PRN Reason: Nausea And Vomiting Stop: 11/04/23 17:14 Multivitamins (Multivitamin Tab) 1 tab PO QAM PEND[facility] S[facility] TO [facility] Stop: 11/05/23 08:59 Last Admin: 10/06/23 08:03 Dose: 1 tab Naloxone HCl (Naloxone Hcl 0.4 Mg/1 Ml Vial/Carp) 0.1 mg IV Q5M PRN PRN Reason: Oversedation/Resp Depression Stop: 11/04/23 17:14 Ganciclovir [Zirgan] 0.15 % Gel *Patient 's Own Med* 1 each OPL BID [facility] Stop: 11/02/23 22:59 Last Admin: 10/06/23 08:05 Dose: 1 each Ondansetron HCl (Ondansetron Inj 2 Mg/Ml 2 Ml Vial) 4 mg IV Q6H PRN PRN Reason: Nausea And Vomiting Stop: 11/04/23 17:14 Paroxetine HCl (Paroxetine Hcl 10 Mg Tab) 10 mg PO QAM [facility] Stop: 11/03/23 08:59 Last Admin: 10/06/23 08:02 Dose: 10 mg Prednisolone Acetate (Prednisolone Acetate 1% Op Susp 5 Ml Btl) 1 drops OP BID [facility] Stop: 11/02/23 21:53 Last Admin: 10/06/23 08:05 Dose: 1 drops Sennosides (Senna 8.6 Mg Tab) 17.2 mg PO [facility] Stop: 11/04/23 20:59 Last Admin: 10/05/23 19:55 Dose: 17.2 mg Tramadol HCl (Tramadol Hcl 50 Mg Tablet) 50 - 100 mg PO Q6H PRN PRN Reason: Pain & Pre PT Stop: 11/04/23 17:14 Trazodone HCl (Trazodone Hcl 50 Mg Tab) 50 mg PO HS [facility] Stop: 11/02/23 21:53 Last Admin: 10/05/23 19:54 Dose: 50 mg
[2023-10-06] MEDS: APIXABAN 5 MG TABLET PO SCH (20:18)
--- NOTE | 2023-10-07 10:48 | Surgery Progress Note ---
Date of Service October 07, 2023 Assessment & Plan (1) Closed right trimalleolar fracture: Plan: 83-year-old female now postop day 2 from ORIF of a right trimalar ankle fracture. She is doing well. Pains controlled. Just waiting for placement. Plan: 1. DVT prophylaxis including thigh-high teds, SCDs, aspirin twice a day for 6 weeks. 2. PT/OT. As she is nonweightbearing this right leg for the first 2 weeks. 3. Dressing/splint care. Needs to just keep the splint in place for the next 2 weeks until I see her back in clinic. Does need to keep all pressure off the heel to avoid the heel ulcers. 4. Medical management as per the medicine service. 5. Disposition she is orthopedically okay for discharge anytime medically stable and facility can be arranged. As she is hoping to go to [facility]. I need to see him back 2 to 3 weeks out from surgery date. Any orthopedic questions can direct me at [phone]. Admission and Anticipated Discharge Date Admission Date: October 03, 2023 Subjective 83-year-old female now postop day 2 from ORIF of a bimalleolar ankle fracture. She is doing well. Once again not have much in the way of pain at all. I just really waiting for placement. Denies any other complaints. No chest pain no shortness of breath. Physical Exam Physical Exam: [place] is a pleasant early female. She is sitting up in bed looks pretty comfortable. Examination of the right ankle reveals the dressing be clean dry and intact. She can flex extend her toes slightly. Toes are pink with brisk refill. Results & Data Vital Signs (Past 12 Hours) Vital Signs Temp Pulse Resp BP Pulse Ox O2 Del Method 10/07/23 08:21 36.5 C 64 14 132/74 98 Room Air PG Care Time/CCT Total # of Minutes Spent Total Time Spent with Patient: Total time spent is greater than 50% in coordination of care (as documented) at patient's floor/unit and/or counseling patient: Coding Level of Care Code 71102 Post Operative Follow-Up Diagnoses Closed right trimalleolar fracture S82.851A
--- NOTE | 2023-10-07 14:53 | Hospitalist Progress Note ---
Date of Service October 07, 2023 Assessment & Plan (1) Closed right trimalleolar fracture: (2) Fall at home: (3) Chronic atrial fibrillation: (4) Pulmonary hypertension: Plan Mr. Madrid is an 83-year-old woman suffering a trimalleolar right ankle fracture after a fall at home, now s/p 10/04 ORIF. Closed right trimalleolar fracture Secondary to mechanical fall S/P Splint --Foot X ray:Acute trimalleolar ankle fracture with a few millimeters of displacement and moderate soft tissue swelling. Possible syndesmotic ligamentous injury. No acute fracture of the foot. Pain control Fall precautions S/P ORIF R ankle by Dr. Nelson POD #2 continue PT/OT NWB to R ankle for 3 weeks. She will need follow up with Dr. Nelson in 2-3 weeks from surgery date she needs to keep pressure off her heel and splint needs to stay clean and dry Continue eliquis -Discontinue asa Appreciate orthopedic input daily stool softener ongoing Dispo to SNF tomorrow Hypokalemia repleted due to hx of afib keep K and Mag > 4.0 and 2.0 labs in am HTN Bp on lower side hold amlodipine, lisinopril, lasix and resume as able Other chronic conditions: Chronic atrial fibrillation Hypertension Mood disorder Continue home medications as able DVT Px: eliquis CODE STATUS Full code Disposition Pt is medically stable for discharge, Plan is for rehab, discussed with CM and sent for auth; dispo likely tomorrow Admission and Anticipated Discharge Date Admission Date: October 03, 2023 Subjective NAEO Denies any pain or acute concerns, reports feeling eager to discharge Physical Exam Constitutional: WD/WN, vitals as above Respiratory: normal respiratory effort, lungs clear to auscultation Gastrointestinal (Abdomen): normal bowel sounds, soft, nontender, no hepatosplenomegaly Skin: right ankle dressing/bandages in place CDI Results & Data Results & Data Vital Signs (Past 12 Hours) Vital Signs Temp Pulse Resp BP Pulse Ox O2 Del Method 10/07/23 08:21 36.5 C 64 14 132/74 98 Room Air Medications Administered Home Medications Medication Instructions Recorded Confirmed Last Taken brimonidine 0.2 %-timolol 0.5 % 1 drp OPL BID 08/02/18 10/03/23 09/11/18 08:00 eye drops (Combigan) ganciclovir 0.15 % eye gel (Zirgan) 1 drp OPL BID 08/02/18 10/03/23 09/11/18 08:00 lisinopril 40 mg tablet 40 mg PO QAM 08/02/18 10/03/23 09/12/18 07:00 paroxetine HCl 10 mg tablet 10 mg PO QAM 08/02/18 10/03/23 09/11/18 08:00 calcium carbonate 600 mg-vitamin 1 tab PO DAILY 08/12/20 10/03/23 Unknown D3 5 mcg (200 unit) tablet metoprolol succinate 25 mg 12.5 mg PO DAILY 08/12/20 08/12/20 Unknown tablet,extended release 24 hr vitamins A,C,P-hxxw-encwce 2,148 1 tab PO DAILY 08/12/20 08/12/20 Unknown mcg-113 mg-45 mg-17.4 mg tablet amlodipine 10 mg tablet 10 mg PO DAILY 10/03/23 10/03/23 Unknown apixaban 5 mg tablet (Eliquis) 5 mg PO BID 10/03/23 10/03/23 Unknown furosemide 20 mg tablet 20 mg PO UD 10/03/23 10/03/23 Unknown valacyclovir 1 gram tablet 1,000 mg PO DAILY 10/03/23 10/03/23 Unknown Active Medications Generic Name Dose Route Start Last Admin Trade Name Freq PRN Reason Stop Dose Admin Acetaminophen 1,000 mg 10/05/23 22:00 10/07/23 13:17 Acetaminophen 500 Mg Tab PO 11/04/23 21:59 1,000 mg Q8 JESSI Administration Amlodipine Besylate 10 mg 10/06/23 09:00 10/06/23 08:02 Amlodipine Besylate 5 Mg Tab PO 11/05/23 08:59 10 mg DAILY JESSI Administration Apixaban 5 mg 10/06/23 21:00 10/07/23 08:50 Apixaban 5 Mg Tablet PO 11/05/23 20:59 5 mg BID JESSI Administration Ascorbic Acid 500 mg 10/05/23 17:15 10/07/23 08:50 Ascorbic Acid 500 Mg Tab PO 11/04/23 17:14 500 mg BIDM JESSI Administration Brimonidine/Timolol 1 drops 10/03/23 23:00 10/07/23 08:53 Brimonidine Tartrate/Timolol OPL 11/02/23 22:59 1 drops BID JESSI Administration Docusate Sodium 100 mg 10/05/23 21:00 10/07/23 08:50 Docusate Sodium 100 Mg Cap PO 11/04/23 20:59 100 mg BID JESSI Administration Furosemide 20 mg 10/04/23 09:00 10/05/23 08:52 Furosemide 20 Mg Tab PO 11/03/23 08:59 20 mg QAM JESSI Administration Lisinopril 40 mg 10/04/23 09:00 10/06/23 08:03 Lisinopril 40 Mg Tab PO 11/03/23 08:59 40 mg QAM JESSI Administration Multivitamins 1 tab 10/06/23 09:00 10/07/23 08:51 Multivitamin Tab PO 11/05/23 08:59 1 tab QAM JESSI Administration Ganciclovir [Zirgan] 1 each 10/03/23 23:00 10/07/23 08:54 0.15 % Gel *Patient OPL 11/02/23 22:59 Not Given 's Own Med* BID JESSI Paroxetine HCl 10 mg 10/04/23 09:00 10/07/23 08:51 Paroxetine Hcl 10 Mg Tab PO 11/03/23 08:59 10 mg QAM JESSI Administration Prednisolone Acetate 1 drops 10/03/23 21:54 10/07/23 09:07 Prednisolone Acetate 1% Op Susp 5 Ml Btl OP 11/02/23 21:53 1 drops BID JESSI Administration Sennosides 17.2 mg 10/05/23 21:00 10/06/23 20:16 Senna 8.6 Mg Tab PO 11/04/23 20:59 17.2 mg HS JESSI Administration Trazodone HCl 50 mg 10/03/23 21:54 10/06/23 20:17 Trazodone Hcl 50 Mg Tab PO 11/02/23 21:53 50 mg HS JESSI Administration
[2023-10-08 06:33] LABS: Hematocrit (blood only) 39.8 % (37.0-47.0); Hemoglobin 13.1 g/dl (12.0-16.0); Mean Corpuscular Hgb Conc 32.9 g/dL (32.0-36.0); Mean Corpuscular Volume 97.1 fL (80.0-100.0); Platelet Count 259 K/uL (130-400); RDW Coefficient of Variation 14.3 % (11.5-14.5); RDW Standard Deviation 50.8 fL (36.4-46.3); White Blood Count 9.74 K/ul (4.8-10.8)
[2023-10-08 06:56] LABS: Anion Gap 4 (3-11); BUN Creatinine Ratio 27.5 (10-20); Blood Urea Nitrogen 22 mg/dl (6-23); Calcium 9.3 mg/dl (8.6-10.3); Carbon Dioxide 29 mmol/L (21-32); Chloride 106 mmol/L (98-107); Creatinine Clr Calc Pharmacy 52.7 ml/min; Est GFR (African American) 77.9 ml/min; Est GFR (Non-African American) 67.2 ml/min; Glucose 91 mg/dl (70-99(Fasting)); Sodium 139 mmol/L (136-145)
--- NOTE | 2023-10-08 13:18 | Discharge Summary ---
Discharge Summary Date of Service October 08, 2023 Notes For Next Care Provider Pressures normotensive during admission, held regimen for resumption as OP as appropriate Medication Changes From Visit Holding Lisinopril Holding Furosemide Holding Amlodipine Admission HPI Per Admitting Provider Patient 83-year-old female with chronic atrial fibrillation on chronic anticoagulation was out gardening and tripped over a garden hose. She fell the ground and it was witnessed by her son. She did not lose consciousness and did not have a syncopal event. She immediately had pain in her right ankle and presented to the emergency room for evaluation in the emergency room imaging revealed trimalleolar fracture. It was splinted and initial plan was for her to be discharged home with outpatient orthopedic follow-up, however even with a walker she could not ambulate safely. She was therefore referred to our service for ongoing care here in the hospital to establish a safe disposition. Time my evaluation, patient's pain is fairly well-controlled. Admission Exam Per Admitting Provider Constitutional: Alert, ill in appearance, nontoxic HEENT: Mucous membranes moist. Sclera clear Neck: Soft, no adenopathy Lungs: Clear to auscultation, decreased, no wheezes rales or rhonchi CV: S1-S2, regular Abdomen: Soft, nontender, nondistended Extremities: No significant edema Musculoskeletal: Right lower extremity in posterior splint and Fernando wrap Neuro: No focal deficits, sensation intact Psych: Cooperative, normal mood Principal Dx & Hospital Course #1 = Principal Diagnosis (1) Closed right trimalleolar fracture: (2) Fall at home: (3) Chronic atrial fibrillation: (4) Pulmonary hypertension: Plan Mr. Madrid is an 83-year-old woman suffering a trimalleolar right ankle fracture after a fall at home, now s/p 10/04 ORIF. Closed right trimalleolar fracture Secondary to mechanical fall S/P Splint --Foot X ray:Acute trimalleolar ankle fracture with a few millimeters of displacement and moderate soft tissue swelling. Possible syndesmotic ligamentous injury. No acute fracture of the foot. Pain control Fall precautions S/P ORIF R ankle by Dr. Nelson POD #2 continue PT/OT NWB to R ankle for 3 weeks. She will need follow up with Dr. Nelson in 2-3 weeks from surgery date she needs to keep pressure off her heel and splint needs to stay clean and dry Continue eliquis -Discontinue asa Appreciate orthopedic input daily stool softener ongoing Dispo to SNF tomorrow Hypokalemia repleted due to hx of afib keep K and Mag > 4.0 and 2.0 labs in am HTN Bp on lower side hold amlodipine, lisinopril, lasix and resume as able Other chronic conditions: Chronic atrial fibrillation Hypertension Mood disorder Continue home medications as able Discharge Exam Constitutional WD/WN, vitals as above Cardiovascular RRR, no murmur, no edema Gastrointestinal (Abdomen) normal bowel sounds, soft, nontender, no hepatosplenomegaly Skin dressing in place LE Updated Medication List Medication Instructions Recorded Confirmed Type brimonidine 0.2 %-timolol 0.5 % 1 drp OPL BID 08/02/18 10/03/23 History eye drops (Combigan) ganciclovir 0.15 % eye gel (Zirgan) 1 drp OPL BID 08/02/18 10/03/23 History lisinopril 40 mg tablet 40 mg PO QAM 08/02/18 10/03/23 History paroxetine HCl 10 mg tablet 10 mg PO QAM 08/02/18 10/03/23 History calcium carbonate 600 mg-vitamin 1 tab PO DAILY 08/12/20 10/03/23 History D3 5 mcg (200 unit) tablet metoprolol succinate 25 mg 12.5 mg PO DAILY 08/12/20 08/12/20 History tablet,extended release 24 hr vitamins A,C,Z-gfaq-fmgnad 2,148 1 tab PO DAILY 08/12/20 08/12/20 History mcg-113 mg-45 mg-17.4 mg tablet amlodipine 10 mg tablet 10 mg PO DAILY 10/03/23 10/03/23 History apixaban 5 mg tablet (Eliquis) 5 mg PO BID 10/03/23 10/03/23 History furosemide 20 mg tablet 20 mg PO UD 10/03/23 10/03/23 History valacyclovir 1 gram tablet 1,000 mg PO DAILY 10/03/23 10/03/23 History acetaminophen 500 mg tablet 1,000 mg (2 x 500 mg) PO Q8 #180 10/08/23 Rx (Tylenol Extra Strength) tabs ascorbic acid (vitamin C) 500 mg 500 mg PO BIDM #60 tabs 10/08/23 Rx tablet (Vitamin C) docusate sodium 100 mg capsule 100 mg PO BID #30 caps 10/08/23 Rx multivitamin with folic acid 400 1 tab PO QAM #30 tabs 10/08/23 Rx mcg tablet (Daily-Frances (with folic acid)) trazodone 50 mg tablet 50 mg PO HS #30 tabs 10/08/23 Rx Hospital Stay Data Consultations 10/03/23 19:22 Consult Orthopedic Surgery Routine 10/03/23 19:24 ED Decision to Admit Stat 10/03/23 19:59 Consult Orthopedic Surgery Routine Procedures Performed Operation Date: 10/05/23 13:50 Actual Procedures p Right Ankle Fracture Open Reduction Internal Fixation(Right) - Regan Nelson MD Diagnostic Imagining Performed 10/05/23 13:50 FL ankle RT 2V Routine 10/05/23 14:07 US - OR guided needle placemen Routine Pending Results Patient Have Any Pending Studies at Discharge: No Discharge Instructions Given to Patient (Per Discharging Provider) You were admitted for right ankle fracture and underwent repair on 10/05/2023. You were noted to have a low-normal blood pressure post operatively, therefore the following medications were held: -Lisinopril 40mg daily -Furosemide 20mg daily -Amlodipine 10mg daily These medications can be resumed as tolerated while you recover and if your blood pressure starts to trend higher. You have a follow up with your primary care provider scheduled. Please follow up with Ortho as recommended. Please Keep splint and dressing clean, dry, an in place until return clinic visit Keep ALL pressure off Heel at all times. Total Time Total Time Spent Total Time Spent (In Minutes): 35
== END 2023-10-08 13:58 | DRG 493 ==
LOC: ED 17:19 → SUATTDRO 19:59 → 3W 19:59